=== PATIENT | male | born 1960 | race Caucasian/White ===

== ENCOUNTER → 2016-04-12 | Outpatient (CLI) | payer OTHER, MEDICARE ==
[~2016-04-12] MED LIST: HALDOL 5MG T5 MG/TAB PO; LITHIUM 30300 MG/CAP PO; REMERON30 MG PO
== END ==
LOC: BHSO 12:56
DX: F31.81 Bipolar II disorder (principal)

== ENCOUNTER → 2016-07-07 | Outpatient (CLI) | payer OTHER | LOC: BHSO 13:58 | DX: F31.12 Bipolar disorder, current episode manic without psychotic features, moderate (principal) ==

== ENCOUNTER → 2016-10-13 | Outpatient (CLI) | payer OTHER | LOC: BHSO 14:22 | DX: F31.9 Bipolar disorder, unspecified (principal) ==

== ENCOUNTER → 2017-01-11 | Outpatient (CLI) | payer OTHER | LOC: BHSO 14:26 | DX: F31.73 Bipolar disorder, in partial remission, most recent episode manic (principal) ==

== ENCOUNTER → 2017-04-11 | Outpatient (CLI) | payer OTHER | LOC: BHSO 14:07 | DX: F31.73 Bipolar disorder, in partial remission, most recent episode manic (principal) | CPT/HCPCS: G0463 ==

== ENCOUNTER 2017-05-24 10:12 | Outpatient (RCR) | payer OTHER | END 2017-08-22 | disposition home or self-care (01) | LOC: WSPT | DX: H81.13 Benign paroxysmal vertigo, bilateral (principal) ==

== ENCOUNTER → 2017-07-11 | Outpatient (CLI) | payer OTHER | LOC: BHSO 14:43 | DX: F31.81 Bipolar II disorder (principal) | CPT/HCPCS: G0463 ==

== ENCOUNTER → 2017-08-23 | Outpatient (CLI) | payer OTHER | LOC: BHSO 14:26 | DX: F31.31 Bipolar disorder, current episode depressed, mild (principal) | CPT/HCPCS: G0463 ==

== ENCOUNTER → 2018-01-22 | Outpatient (CLI) | payer OTHER | LOC: BHSO 14:13 | DX: F31.72 Bipolar disorder, in full remission, most recent episode hypomanic (principal) | CPT/HCPCS: G0463 ==

== ENCOUNTER 2018-02-16 16:58 | Emergency (ER) | payer MEDICARE ==
[~2018-02-16] VITALS: Ht 185.4 cm; Wt 118.2 kg
[2018-02-16 17:01] VITALS: BP 201/104; TEMP 98.1
[2018-02-16 17:25] LABS: BASO # 0.1 (0.0-0.2); BASO % 1.1 % (0.0-2.0); EOS # 0.3 (0.0-0.7); EOS % 4.3 % (0-4.0); GRAN % 47.6 % (42.2-75.2); HEMATOCRIT 41.3 % (42.0-52.0); HEMOGLOBIN 13.8 g/dl (13.5-18.0); LYMPH # 2.2 (1.2-3.4); LYMPH % 35.4 % (20.0-51.0); MEAN CELL VOLUME 96 fl (80.0-100.0); MEAN CORPUSCULAR HEMOGLOBIN 32 pg (27.0-31.0); MEAN CORPUSCULAR HGB CONC 33 g/dl (33.0-37.0); MEAN PLATELET VOLUME 10.7 fl (7.4-10.4); MONO # 0.7 (0.1-0.6); MONO % 11.3 % (1.7-9.3); PLATELET COUNT 200 K/mm3 (130-400); REDCELL DISTRIBUTION WIDTH-CV 12.7 % (11.5-14.5)
[2018-02-16] MEDS ORDERED: LIPITOR20 MG PO (17:28)
[2018-02-16] MEDS ORDERED: SYNTHROID0.05 MG/TA PO (17:28)
[2018-02-16] MEDS ORDERED: SYNTHROID0.2 MG/TAB PO (17:28)
[2018-02-16] MEDS ORDERED: PRINZIDE 12.5 M1 TA1 PO (17:29)
[2018-02-16] MEDS ORDERED: PRILOSEC 20MG20 MG PO (17:29)
[2018-02-16] MEDS ORDERED: SEROQUEL 200MG200 MG PO (17:30)
[2018-02-16] MEDS ORDERED: DEPAKOTE ER 50500 MG PO (17:31)
[2018-02-16 17:43] LABS: ALANINE AMINOTRANSFERASE 28 U/L (21-72); ALBUMIN 3.8 gm/dL (3.5-5.0); ALKALINE PHOSPHATASE 71 U/L (50-136); ANION GAP 7 mmol/L (7-16); AST,SGOT 42 U/L (15-37); BILIRUBIN,TOTAL 0.4 mg/dL (0.0-1.0); BLOOD UREA NITROGEN 14 mg/dL (9-20); CARBON DIOXIDE 26 mmol/L (22-30); CHLORIDE 110 mmol/L (98-107); GLUCOSE 93 mg/dL (74-106); POTASSIUM 3.8 mmol/L (3.4-5.0); SODIUM 143 mmol/L (137-145); TOTAL PROTEIN 6.7 gm/dL (6.4-8.2)
[2018-02-16 17:57] LABS: TROPONIN-I < 0.012 ng/mL (0.000-0.034)
[2018-02-16] MEDS ORDERED: K-DUR 10 MEQ T10 MEQ PO (18:07)
[2018-02-16] MEDS ORDERED: LASIX 20MG TABL20 MG PO (18:07)
[2018-02-16 18:45] VITALS: PULSE 70
== END 2018-02-16 18:45 | disposition home or self-care (01) ==
LOC: COL.ER 16:58
PROVIDERS: Emergency Medicine
DX: R06.02 Shortness of breath (principal); R60.9 Edema, unspecified; I10 Essential (primary) hypertension; E78.5 Hyperlipidemia, unspecified

== ENCOUNTER → 2018-03-02 | Outpatient (CLI) | payer MEDICARE ==
[~2018-03-02] MED LIST changes: +DEPAKOTE ER 50500 MG PO; +K-DUR 10 MEQ T10 MEQ PO; +LASIX 20MG TABL20 MG PO; +LIPITOR20 MG PO; +PRILOSEC 20MG20 MG PO; +PRINZIDE 12.5 M1 TA1 PO; +SEROQUEL 200MG200 MG PO; +SYNTHROID0.05 MG/TA PO; +SYNTHROID0.2 MG/TAB PO
== END ==
LOC: COL.VAS 07:43
DX: I50.21 Acute systolic (congestive) heart failure (principal); I08.1 Rheumatic disorders of both mitral and tricuspid valves

== ENCOUNTER → 2018-03-22 | Outpatient (CLI) | payer MEDICARE | LOC: BHSO 13:54 | DX: F31.72 Bipolar disorder, in full remission, most recent episode hypomanic (principal) | CPT/HCPCS: G0463 ==

== ENCOUNTER → 2018-09-13 | Outpatient (CLI) | payer MEDICARE | LOC: BHSO 14:03 | DX: F31.75 Bipolar disorder, in partial remission, most recent episode depressed (principal) | CPT/HCPCS: G0463 ==

== ENCOUNTER → 2018-09-25 | Outpatient (CLI) | payer MEDICARE | LOC: BHSO 13:20 | DX: F31.75 Bipolar disorder, in partial remission, most recent episode depressed (principal) | CPT/HCPCS: G0463 ==

== ENCOUNTER → 2018-10-24 | Outpatient (CLI) | payer MEDICARE | LOC: BHSO 13:22 | DX: F31.74 Bipolar disorder, in full remission, most recent episode manic (principal) | CPT/HCPCS: G0463 ==

== ENCOUNTER → 2018-12-27 | Outpatient (CLI) | payer MEDICARE | LOC: BHSO 13:20 | DX: F31.76 Bipolar disorder, in full remission, most recent episode depressed (principal) | CPT/HCPCS: G0463 ==

== ENCOUNTER 2019-01-07 14:08 | Inpatient (IN) | payer MEDICARE ==
[~2019-01-07] VITALS: Ht 185.4 cm; Wt 119.1 kg
[2019-01-07 15:18] LABS: ARTERIAL BLD GAS O2 SATURATION 77.8 % (92-100); ARTERIAL BLD GAS TCO2 CT 19.8; ARTERIAL BLOOD GAS BASE EXCESS -5.3 (-2-2); ARTERIAL BLOOD GAS HCO3 18.8 meq/L (22-26); ARTERIAL BLOOD GAS PCO2 32.1 mmHg (35-45); ARTERIAL BLOOD GAS pH 7.39 (7.35-7.45)
[2019-01-07 15:19] LABS: ARTERIAL BLOOD GAS PO2 44.8 mmHg (80-100)
[2019-01-07 15:29] LABS: HEMOGLOBIN 11.1 g/dl (13.5-18.0); MEAN CELL VOLUME 99 fl (80.0-100.0); MEAN CORPUSCULAR HEMOGLOBIN 32 pg (27.0-31.0); MEAN CORPUSCULAR HGB CONC 32 g/dl (33.0-37.0); PLATELET COUNT 154 K/mm3 (130-400); RED BLOOD COUNT 3.47 M/mm3 (4.20-5.60); REDCELL DISTRIBUTION WIDTH-CV 13.2 % (11.5-14.5)
[2019-01-07 15:31] LABS: HEMATOCRIT 34.5 % (42.0-52.0)
[2019-01-07 15:53] LABS: ALBUMIN 3.4 gm/dL (3.5-5.0); BILIRUBIN,TOTAL 0.7 mg/dL (0.0-1.0); CALCIUM 8.3 mg/dL (8.4-10.2); CREATININE, serum 3.53 (0.66-1.25); POTASSIUM 4.3 mmol/L (3.4-5.0); TOTAL PROTEIN 6.8 gm/dL (6.4-8.2)
[2019-01-07 15:56] LABS: BAND 2 % (0-10); LYMPHOCYTE 8 % (20.0-51.0); NEUTROPHILS 60 % (42.0-75.2); PLATELET ESTIMATE NORMAL (NORMAL)
[2019-01-07 16:11] LABS: C-REACTIVE PROTEIN 22.3 mg/dL (0.0-0.9); TROPONIN-I 0.066 ng/mL (0.000-0.035)
[2019-01-07 16:21] LABS: THYROID STIMULATING HORMONE 3.08 uIU/mL (0.465-4.680)
[2019-01-07] MEDS ORDERED: TOPROL XL100 MG PO (16:53)
[2019-01-07] MEDS ORDERED: LASIX 40MG TABL40 MG PO ×2 (16:54→16:55)
[2019-01-07] MEDS ORDERED: PRINIVIL20 MG PO (16:55)
[2019-01-07] MEDS ORDERED: LITHIUM 30300 MG/CAP PO (16:58)
[2019-01-07] MEDS ORDERED: SEROQUEL400 MG PO (18:14)
[2019-01-07 18:35] VITALS: BP 117/73; PULSE 99; TEMP 98.3
--- NOTE | 2019-01-07 19:00 | NUR ---
Pt has right swollen foot and hurts upon palpation. Left foot hurts from foot to groin. Pt states he cannot rate or describe pain. Right food edema is 1+ and left foot is 2-3+ edema.
[2019-01-07 19:15] LABS: INR 1.3 (0.8-3.0)
[2019-01-07 19:17] LABS: PARTIAL THROMBOPLASTIN TIME 143.5 SECONDS (26.0-37.0)
--- NOTE | 2019-01-07 19:21 | NUR ---
PT IS A&O X4, BUT DOESN'T UNDERSTAND SIMPLE QUESTIONS REGARDING WHERE HIS PAIN IS AND DESCRIBING PAIN. PT HAS A DOG AT HOME AND STATES THE DOG IS OKAY BC THERE SHOULD BE ENOUGH PEE PADS FOR HIM; THIS IS CONCERNING AND WILL HAVE SOCIAL WORK FOLLOW-UP.
[2019-01-07 20:00] VITALS: BP 120/71; PULSE 101; TEMP 98.4
--- NOTE | 2019-01-07 21:10 | NUR ---
HEPARIN STOPPED FOR TWO HOURS AND WILL RECHECK XA. WILL CONTINUE PER HEPARIN PROTOCOL.
[2019-01-08] VITALS (7 sets, daily range): BP systolic 108–133; BP diastolic 62–94; PULSE 96–108; TEMP 98.3–100.4
[2019-01-08 04:57] LABS: BASO % 0.4 % (0.0-2.0); EOS # 0.3 (0.0-0.7); EOS % 3.6 % (0-4.0); GRAN # 4.7 (1.4-6.5); GRAN % 60.2 % (42.2-75.2); HEMOGLOBIN 10.2 g/dl (13.5-18.0); LYMPH # 1.2 (1.2-3.4); LYMPH % 15.4 % (20.0-51.0); MEAN CELL VOLUME 98 fl (80.0-100.0); MEAN CORPUSCULAR HEMOGLOBIN 32 pg (27.0-31.0); MEAN CORPUSCULAR HGB CONC 32 g/dl (33.0-37.0); MEAN PLATELET VOLUME 9.7 fl (7.4-10.4); MONO # 1.6 (0.1-0.6); PLATELET COUNT 147 K/mm3 (130-400); RED BLOOD COUNT 3.24 M/mm3 (4.20-5.60); REDCELL DISTRIBUTION WIDTH-CV 13.1 % (11.5-14.5)
[2019-01-08 05:02] LABS: HEMATOCRIT 31.8 % (42.0-52.0)
[2019-01-08 05:08] LABS: CALCIUM 8.1 mg/dL (8.4-10.2); CHOLESTEROL RISK RATIO 6.2; CREATININE, serum 2.22 (0.66-1.25); MAGNESIUM 2.8 mg/dL (1.6-2.3); PHOSPHOROUS 4.7 mg/dL (2.5-4.5); POTASSIUM 4.1 mmol/L (3.4-5.0)
[2019-01-08 05:19] LABS: TROPONIN-I 0.039 ng/mL (0.000-0.035)
--- NOTE | 2019-01-08 10:53 | NUR ---
FLASK HANDLER student met with the patient to discuss a discharge plan. The patient lives in [place] with his dog, Noel. The patient reports his brother, Pio Rasheed will pick the dog up this day. The patient denies use of DME and reports independence with ADLs. The patient's PCP is Dr. Calderon and patient receives medications via mail through [facility] with no difficulties. The patient does not have advanced directives in the EMR but patient reports they are completed and designate his brother, Pio.The patient plans to return home upon discharge. PT/OT were ordered for the patient. director of professional services will continue to monitor for recommendations.
--- NOTE | 2019-01-08 14:15 | NUR ---
Dr. Brown at bedside with team rounding.
--- NOTE | 2019-01-08 14:15 | NUR ---
RIP SAW OPERATOR student attended clinical rounds with the team. Ortho consulted. The patient will be moved up to the floor this day. manager field services will continue to monitor.
--- NOTE | 2019-01-08 15:30 | NUR ---
RANDY Titus at pt bedside splinting pts right foot.
--- NOTE | 2019-01-08 19:45 | NUR ---
Report received. 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 A&Ox3. Assessment complete. VS stable. Denies pain/shortness of breath/nausea. Oriented to medical floor room. Right lower extremity wrapped with srinivas/soft splint. Elevated on pillow. Oxi mask @5L/NC. Denies needs. Call light in reach/bed in low wheels locked. Will monitor.
[2019-01-09 04:41] VITALS: BP 136/70; PULSE 106; TEMP 97.7
[2019-01-09 06:22] LABS: MEAN CELL VOLUME 99 fl (80.0-100.0); MEAN CORPUSCULAR HGB CONC 32 g/dl (33.0-37.0); MEAN PLATELET VOLUME 10.3 fl (7.4-10.4); PLATELET COUNT 148 K/mm3 (130-400); RED BLOOD COUNT 2.63 M/mm3 (4.20-5.60); REDCELL DISTRIBUTION WIDTH-CV 12.9 % (11.5-14.5)
[2019-01-09 06:28] LABS: HEMOGLOBIN 8.3 g/dl (13.5-18.0); MEAN CORPUSCULAR HEMOGLOBIN 32 pg (27.0-31.0)
[2019-01-09 06:36] LABS: CALCIUM 7.9 mg/dL (8.4-10.2); CREATININE, serum 1.25 (0.66-1.25); POTASSIUM 4.3 mmol/L (3.4-5.0)
--- NOTE | 2019-01-09 07:00 | NUR ---
Bedside shift report received from KIRSTEN Padilla. Pt in bed resting with eyes closed and CPAP on. Will continue to monitor.
[2019-01-09 07:15] LABS: BAND 14 % (0-10); BURR CELLS 1+; EOSINOPHIL 1 % (0-4); LYMPHOCYTE 23 % (20.0-51.0); METAMYELOCYTE 1 % (0-0); NEUTROPHILS 56 % (42.0-75.2); OVALOCYTES 1+
[2019-01-09 07:16] LABS: PLATELET ESTIMATE NORMAL (NORMAL)
[2019-01-09 07:20] VITALS: BP 137/73; PULSE 103; TEMP 97.7
--- NOTE | 2019-01-09 09:30 | NUR ---
Assessment charted. Pt lethargic and falls asleep easily when resting in bed and talking to him. He states he feels short of breath, o2 at 5L OM. LLE is very swollen, skin feels tight, and pt c/o pain at 10/10 to extremity. RLE is wrapped in a boot but pt does not c/o pain to the site. Heparin gtt running, decreased rate by 1.5 ml/hr per protocol now at 18.5 ml/hour verified with Que in pharmacy. Hospitalist rounding completed, pt agreeable to plan but falls asleep easily. Will continue to [facility].
[2019-01-09 10:45] VITALS: BP 132/79; PULSE 102; TEMP 98.4
--- NOTE | 2019-01-09 11:08 | NUR ---
Called [facility] and talked to [facility] staff regarding recommendations for RLE.
--- NOTE | 2019-01-09 15:27 | NUR ---
AYESHA met with the patient to discuss post acute rehab. SW presented the Medicare.gov list of inpatient rehab and usp facilities in the area. The patient[facility] first choice is [facility], second choice is [facility] and third choice is [facility]. AYESHA left message for [facility] Director and faxed referrals to [facility] and [facility]. AYESHA will continue to follow.
[2019-01-09 15:47] VITALS: BP 143/84; PULSE 96; TEMP 98.7
--- NOTE | 2019-01-09 18:11 | NUR ---
Pt resting in bed, has been sleeping off and on all day. States he has been lethargic for some time now, states he thinks its from lately he has been sleeping in a friends recliner as a favor. Able to wake up with me this evening and hold a conversation. Otherwise has at times been found with 02 off of face and needs reminder to keep on at all times. Resting in bed with both legs elevated on pillows. Denies needs, will continue to monitor.
[2019-01-09 20:11] VITALS: BP 150/78; PULSE 99; TEMP 97
--- NOTE | 2019-01-09 20:55 | NUR ---
Patient assessed at this time. Drowsy but awakens easily. Falls asleep easily. Alert and oriented x 4. Denies having pain and discomfort at this time. Peripheral IVs to right and left AC. Sites are without redness, warmth, swelling, and pain. Heparin gtt continues per orders. On oxygen at 4 L/min via NC. Denies having SOB and dyspnea. Patient with occasional expiratory wheezes. Respirations even and unlabored. HRR. Capillary refill less than 3 seconds. Non-tenting skin turgor. BSAx4. Abdomen soft and non-tender. 2+ edema to RLE. Hard splint to RLE CDI. Denies numbness to toes. Cap refill < 3 seconds to toes. Able to wiggle toes. 3+ edema LLE. Very tight, and warm to touch. Voices no questions, needs, or concerns at this time. Resting in bed with call light within reach.
--- NOTE | 2019-01-09 22:00 | NUR ---
Hep Xa 0.48. No change at this time. Recheck in the morning.
[2019-01-09 23:30] VITALS: BP 125/75; PULSE 103
[2019-01-10] VITALS (12 sets, daily range): BP systolic 123–182; BP diastolic 68–82; PULSE 60–105; TEMP 97–99.5
--- NOTE | 2019-01-10 06:04 | NUR ---
Patient has denied having pain and discomfort. Denies having SOB and dyspnea. Has been wearing CPAP. LLE continues to be tight. Continues on heparin gtt and fluids per orders to periphreal IV to left AC. Voices no questions, needs, or concerns at this time. Resting in bed with call light within reach.
[2019-01-10 06:45] LABS: MEAN CELL VOLUME 98 fl (80.0-100.0); MEAN CORPUSCULAR HGB CONC 33 g/dl (33.0-37.0); MEAN PLATELET VOLUME 9.9 fl (7.4-10.4); PLATELET COUNT 205 K/mm3 (130-400); RED BLOOD COUNT 2.16 M/mm3 (4.20-5.60); REDCELL DISTRIBUTION WIDTH-CV 13.1 % (11.5-14.5)
[2019-01-10 06:51] LABS: CREATININE, serum 0.98 (0.66-1.25); POTASSIUM 4.2 mmol/L (3.4-5.0)
[2019-01-10 07:01] LABS: HEMATOCRIT 21.1 % (42.0-52.0); HEMOGLOBIN 6.9 g/dl (13.5-18.0); MEAN CORPUSCULAR HEMOGLOBIN 32 pg (27.0-31.0)
[2019-01-10 07:44] LABS: BAND 16 % (0-10); EOSINOPHIL 4 % (0-4); LYMPHOCYTE 15 % (20.0-51.0); METAMYELOCYTE 2 % (0-0); MYELOCYTE 1 % (0-0); NEUTROPHILS 58 % (42.0-75.2); PLATELET ESTIMATE NORMAL (NORMAL)
--- NOTE | 2019-01-10 09:40 | NUR ---
Noel, from [facility], reports that they are able to accept the patient and that they have received authorization from the patient's insurance. SW to inform the patient.
--- NOTE | 2019-01-10 15:31 | NUR ---
AYESHA contacted and faxed updates to [facility]. SW to continue to follow.
--- NOTE | 2019-01-10 17:59 | NUR ---
Mr. Rasheed's brother Herson and LAURA Calvert presented to patient advocates office to discuss concerns they have regarding Mr. Varghese discharge planning. They are unaware of the discharge plans and share that Kyle is a very private man as are all the [place] men. They want to share that Klye lives in a split-level home with many stairs going up/down between the levels, additionally Kyle lives alone, and the closest relative is 2 hours away. They wanted to validate that we will have a safe discharge plan in place and they feel that him is unable to be safe at home independently at this time. I assured them our nursing staff and pillowcase folder/social workers work very diligently with every patient to ensure safe discharge plans are in place prior to discharge. I did reassure them I would pass their concerns on to the UD of case management, asking that she have the appropriate social security specialist review plans and dialogue with Kyle in the morning 11.08.19; they were pleased with this plan. The brother Herson did ask, with Kyle's permission, could the social security specialist please call him with the discharge plan and Herson is happy to come from [place] to facilitate transportation if necessary etc. Please contact Herson at [phone]; he states it is ok to leave a message or call his 's cell phone [phone]. They do understand that the social security specialist can only call Herson and/or Nehal with Kyle's permission. They understand this and are most appreciative that their concerns were heard and will be passed on. I did place a message on the UD's phone to call in the am for message regarding Rajni Rasheed. Cesilia Winn MSN, BATH MIXER Babbitt Spinner/Patient Advocate
--- NOTE | 2019-01-10 20:00 | NUR ---
Patient assessed at this time. Alert and oriented. Denies having pain and discomfort at this time. Peripheral IVs to left and right AC flushed. Sites are without redness, warmth, swelling, and pain. Reports SOB and dypsnea with exertion. Denies at rest. LS CTA. Respirations even and unlabored. Does have occasional cough. Unable to produce sputum to be observed. On oxygen at 5 L/min via oxymask. HRR. Capillary refill less than 3 seconds. Non-tenting skin turgor. BSAx4. Abdomen soft and non-tender. Patient has 1+ edema to bilateral hands, 2+ edema RLE, and 3+ to LLE. LLE very tight. Hard splint to RLE. Able to feels toes. Denies numbness, pain, and tingling to right foot. Voices no questions, needs, or concerns at this time. Resting in bed watching TV at this time. Call light is within reach.
[2019-01-11 04:02] VITALS: BP 146/88; PULSE 107
--- NOTE | 2019-01-11 06:10 | NUR ---
Patient has been resting in bed with eyes closed. Has denied having pain and discomfort. Has been wearing CPAP. Voices no questions, needs, or concerns at this time. Call light is within reach.
[2019-01-11 07:21] LABS: COLLECTION METHOD CLEAN CATCH
[2019-01-11 07:29] LABS: PH 6 (5-8); SQUAMOUS EPITHELIAL None Seen /hpf; URINE APPEARANCE Clear; URINE BACTERIA None Seen /hpf; URINE BILIRUBIN Negative (NEGATIVE); URINE BLOOD 1+ (NEGATIVE); URINE COLOR Yellow; URINE GLUCOSE Negative (NEGATIVE); URINE KETONE Negative (NEGATIVE); URINE LEUKOCYTE ESTERASE Negative (NEGATIVE); URINE NITRATE Negative (NEGATIVE); URINE PROTEIN(semi-quant) Negative (NEGATIVE); URINE RBC 0-2 /hpf; URINE UROBILINOGEN Negative (NEGATIVE)
[2019-01-11 07:35] VITALS: BP 145/84; PULSE 101; TEMP 98.1
[2019-01-11 07:59] LABS: HEMATOCRIT 22.1 % (42.0-52.0); HEMOGLOBIN 7.3 g/dl (13.5-18.0); MEAN CELL VOLUME 96 fl (80.0-100.0); MEAN CORPUSCULAR HEMOGLOBIN 32 pg (27.0-31.0); MEAN CORPUSCULAR HGB CONC 33 g/dl (33.0-37.0); MEAN PLATELET VOLUME 9.4 fl (7.4-10.4); PLATELET COUNT 294 K/mm3 (130-400); RED BLOOD COUNT 2.31 M/mm3 (4.20-5.60); REDCELL DISTRIBUTION WIDTH-CV 13.9 % (11.5-14.5)
[2019-01-11 08:32] LABS: BAND 12 % (0-10); EOSINOPHIL 2 % (0-4); LYMPHOCYTE 16 % (20.0-51.0); METAMYELOCYTE 1 % (0-0); MYELOCYTE 2 % (0-0); NEUTROPHILS 47 % (42.0-75.2); NUCLEATED RED BLOOD CELL 1 (0-6); PLATELET ESTIMATE NORMAL (NORMAL)
[2019-01-11 08:33] LABS: ANISOCYTOSIS 1+; HYPOCHROMIA 2+
--- NOTE | 2019-01-11 09:00 | NUR ---
Assessment complete. Alert and oriented. Pt denies SOB, nausea, headache. C/O pain to BLE, rate 5/10. Able to move BLE with little movement. RT foot wrapped in EBONY wrap per ortho. PRN Hydrocodone given. Pt refused breakfast tray but requested Ensure drink. On 5L O2 via NC. Informed pt that stool sample is needed and to notify staff when he has a BM. Urinal at bedside. Call light within reach.
[2019-01-11 12:13] VITALS: BP 120/68; PULSE 98; TEMP 99.2
--- NOTE | 2019-01-11 14:41 | NUR ---
Patient's brother, Herson and his , Selam, ([phone] or [phone]) would like a call with notification of discharge date and plan, and understand that patient will need to give staff permission for this to happen.
[2019-01-11 17:25] VITALS: BP 123/50; PULSE 100; TEMP 98.2
--- NOTE | 2019-01-11 18:33 | NUR ---
Pt has been sleeping most of the day but arousable. Pt refused breakfast and lunch but requested to have Ensure. Had fluids throughout the day. Voiced pain to BLE, 5, earlier in shift. PRN Hydrocodone given as requested with relief. Pt unable to get up with PT today. Denies any needs at this time.
[2019-01-11 19:31] VITALS: BP 131/67; PULSE 98; TEMP 98.8
--- NOTE | 2019-01-11 20:17 | NUR ---
Initial shift assessment done- states pain to LLE 04/15- denies pain meds now,, o2 at 5L/nc, sat 93%, lung sounds decreased in the bases- did void 250cc per urinal at this time- requesting some Sprite
[2019-01-11 23:31] VITALS: BP 119/73; PULSE 103; TEMP 97.9
[2019-01-12 03:15] VITALS: BP 137/71; PULSE 101; TEMP 98.6
--- NOTE | 2019-01-12 06:16 | NUR ---
Quiet night- has been sleeping most of the night- does need to void every hour or two- incontinent at times, misses the urinal- incontinent care provided- needs review to use the call light- just calls out for help-
[2019-01-12 06:53] LABS: MEAN CELL VOLUME 99 fl (80.0-100.0); MEAN CORPUSCULAR HGB CONC 32 g/dl (33.0-37.0); MEAN PLATELET VOLUME 9.1 fl (7.4-10.4); PLATELET COUNT 388 K/mm3 (130-400); RED BLOOD COUNT 2.19 M/mm3 (4.20-5.60); REDCELL DISTRIBUTION WIDTH-CV 14.2 % (11.5-14.5)
[2019-01-12 07:07] LABS: HEMATOCRIT 21.7 % (42.0-52.0); MEAN CORPUSCULAR HEMOGLOBIN 32 pg (27.0-31.0)
[2019-01-12 07:08] LABS: CALCIUM 8.4 mg/dL (8.4-10.2); CREATININE, serum 1.08 (0.66-1.25); POTASSIUM 4.8 mmol/L (3.4-5.0)
[2019-01-12 07:57] VITALS: BP 128/75; PULSE 98; TEMP 97.9
[2019-01-12 09:08] LABS: BAND 45 % (0-10); EOSINOPHIL 4 % (0-4); LYMPHOCYTE 14 % (20.0-51.0); METAMYELOCYTE 2 % (0-0); MYELOCYTE 3 % (0-0); NEUTROPHILS 19 % (42.0-75.2)
[2019-01-12 09:09] LABS: ANISOCYTOSIS 1+; HYPOCHROMIA 2+; PLATELET ESTIMATE NORMAL (NORMAL); POLYCHROMASIA 1+
[2019-01-12 13:47] VITALS: BP 118/64; PULSE 92; TEMP 98.4
[2019-01-12 19:36] VITALS: BP 134/74; PULSE 89; TEMP 97.6
--- NOTE | 2019-01-12 20:30 | NUR ---
Initial shift assessment done- more awake/alert this evening, no requests, states pain is" much better" and not needing anything for pain. O2 at 5L/nc, denies SOB, left leg up on pillow- edematous,, right leg with splint and srinivas wrap in place.
[2019-01-12 23:35] VITALS: BP 138/65; PULSE 100
[2019-01-13] VITALS (12 sets, daily range): BP systolic 124–143; BP diastolic 7–73; PULSE 81–96; TEMP 97.2–98.5
--- NOTE | 2019-01-13 05:55 | NUR ---
Slept soundly all night- has been incontinent of urine- tried to collect a urine specimen this morning w/urinal but not successful--VSS
[2019-01-13 07:15] LABS: MEAN CELL VOLUME 101 fl (80.0-100.0); MEAN CORPUSCULAR HGB CONC 32 g/dl (33.0-37.0); MEAN PLATELET VOLUME 8.9 fl (7.4-10.4); PLATELET COUNT 442 K/mm3 (130-400); RED BLOOD COUNT 2.14 M/mm3 (4.20-5.60); REDCELL DISTRIBUTION WIDTH-CV 14.3 % (11.5-14.5)
[2019-01-13 07:21] LABS: HEMATOCRIT 21.5 % (42.0-52.0); HEMOGLOBIN 6.8 g/dl (13.5-18.0); MEAN CORPUSCULAR HEMOGLOBIN 32 pg (27.0-31.0)
[2019-01-13 07:29] LABS: CALCIUM 8.3 mg/dL (8.4-10.2); CREATININE, serum 1.01 (0.66-1.25); POTASSIUM 4.8 mmol/L (3.4-5.0)
[2019-01-13 08:17] LABS: BAND 24 % (0-10); EOSINOPHIL 2 % (0-4); LYMPHOCYTE 16 % (20.0-51.0); METAMYELOCYTE 6 % (0-0); MYELOCYTE 5 % (0-0); NEUTROPHILS 39 % (42.0-75.2); NUCLEATED RED BLOOD CELL 2 (0-6)
[2019-01-13 08:18] LABS: HYPOCHROMIA 2+; PLATELET ESTIMATE INCREASED (NORMAL)
[2019-01-13 14:39] LABS: COLLECTION METHOD CLEAN CATCH
[2019-01-13 14:44] LABS: MUCOUS Present /lpf; PH 6 (5-8); SQUAMOUS EPITHELIAL None Seen /hpf; URINE APPEARANCE Clear; URINE BACTERIA None Seen /hpf; URINE BILIRUBIN Negative (NEGATIVE); URINE BLOOD Negative (NEGATIVE); URINE COLOR Amber; URINE GLUCOSE Negative (NEGATIVE); URINE KETONE Negative (NEGATIVE); URINE LEUKOCYTE ESTERASE Negative (NEGATIVE); URINE NITRATE Negative (NEGATIVE); URINE PROTEIN(semi-quant) Negative (NEGATIVE); URINE RBC 0-2 /hpf; URINE UROBILINOGEN >=4.0 mg/dL (NEGATIVE); URINE WBC 0-2 /hpf
--- NOTE | 2019-01-13 18:24 | NUR ---
Patient has been more alert this afternoon, has been using urinal independently. Was able to obtain a stool sample and UA. Has utilized call light to vocalize needs, fluid intake has been good. Voices he has some pain to his BLEs, did request a dose of tylenol earlier in the afternoon.
--- NOTE | 2019-01-13 19:35 | NUR ---
Shift assessment complete. Pt resting in bed, sleepy but easy to wake, alert, oriented to person/place c frequent confused statements. Pt denies pain or other c/o at this time. INT x2 patent. Pt denies needs. Call light in reach, bed alarm on. Will continue to monitor.
--- NOTE | 2019-01-13 20:30 | NUR ---
Shift assessment complete. Pt resting in bed, awake, a&o, cooperative c cares. Pt continued c/o to L ankle, R knee et R hand; will given PRN pain med when available per pt req. Pt denies other c/o. PICC noted to R upper arm, patent through purple port c good blood return, red port obstructed et AIVS aware. O2 per NC. Pt denies further needs. Call light in reach, bed alarm on. Will continue to monitor.
[2019-01-14 03:42] VITALS: BP 141/78; PULSE 80
[2019-01-14 07:12] LABS: MEAN CELL VOLUME 98 fl (80.0-100.0); MEAN CORPUSCULAR HGB CONC 32 g/dl (33.0-37.0); PLATELET COUNT 458 K/mm3 (130-400); RED BLOOD COUNT 2.36 M/mm3 (4.20-5.60); REDCELL DISTRIBUTION WIDTH-CV 15.4 % (11.5-14.5)
[2019-01-14 07:15] LABS: HEMATOCRIT 23.2 % (42.0-52.0); HEMOGLOBIN 7.5 g/dl (13.5-18.0); MEAN CORPUSCULAR HEMOGLOBIN 32 pg (27.0-31.0)
[2019-01-14 07:19] LABS: CALCIUM 8.1 mg/dL (8.4-10.2); CREATININE, serum 0.87 (0.66-1.25); POTASSIUM 4.3 mmol/L (3.4-5.0)
[2019-01-14 08:08] VITALS: BP 130/80; PULSE 92; TEMP 97.9
[2019-01-14 08:08] LABS: BAND 9 % (0-10); EOSINOPHIL 4 % (0-4); LYMPHOCYTE 18 % (20.0-51.0); METAMYELOCYTE 6 % (0-0); NEUTROPHILS 52 % (42.0-75.2); NUCLEATED RED BLOOD CELL 1 (0-6)
[2019-01-14 08:09] LABS: PLATELET ESTIMATE INCREASED (NORMAL)
[2019-01-14 08:40] LABS: PATHOLOGY DIFF REVIEW OK +
[2019-01-14 11:33] LABS: PARTIAL THROMBOPLASTIN TIME 28.9 SECONDS (26.0-37.0)
[2019-01-14 12:06] VITALS: BP 131/68; PULSE 86; TEMP 97.8
[2019-01-14 13:04] LABS: INR 1.7 (0.8-3.0); PROTHROMBIN TIME 20.1 SECONDS (9.7-12.8)
--- NOTE | 2019-01-14 15:37 | NUR ---
Planning for IVC Filter implant on 01/[address] Kate, Heprain drip to be held on 01/15 at 0600. Coag labs ordered for 0700. Pt to be NPO at midnight. Heparin drip hold order entered by this RN. Call placed to KIRSTEN Anderson on Medical at this time to relay this information.
[2019-01-14 16:15] VITALS: BP 144/71; PULSE 95; TEMP 97.8
--- NOTE | 2019-01-14 17:04 | NUR ---
Machine Repairer attended clinical rounds with the team. Hospitalist ordering consultations for psych, pulmonolgy, and ortho. SW to continue to follow.
--- NOTE | 2019-01-14 19:29 | NUR ---
Patient is resting in bed with eyes closed, linens changed and rosanna care provided. Call light and personal items are within reach.
[2019-01-14 20:00] VITALS: BP 139/72; PULSE 95
--- NOTE | 2019-01-14 20:10 | NUR ---
Shift assessment complete. Pt resting in bed, awake, a&o c frequent underlying confused statements. Pt reports generalized "aches", denies any other c/o. INT patent. O2 per NC. Soft cast in place to RLE. Pt s further needs. Call light in reach, bed alarm on. Will continue to monitor.
[2019-01-14 23:16] VITALS: BP 160/74; PULSE 92; TEMP 98.5
[2019-01-15] VITALS (7 sets, daily range): BP systolic 121–142; BP diastolic 72–77; PULSE 85–94; TEMP 97.6–98.3
[2019-01-15 03:38] LABS: MEAN CELL VOLUME 99 fl (80.0-100.0); MEAN CORPUSCULAR HGB CONC 32 g/dl (33.0-37.0); MEAN PLATELET VOLUME 8.7 fl (7.4-10.4); PLATELET COUNT 466 K/mm3 (130-400); RED BLOOD COUNT 2.61 M/mm3 (4.20-5.60); REDCELL DISTRIBUTION WIDTH-CV 15.2 % (11.5-14.5)
[2019-01-15 03:39] LABS: HEMATOCRIT 25.8 % (42.0-52.0); HEMOGLOBIN 8.2 g/dl (13.5-18.0); MEAN CORPUSCULAR HEMOGLOBIN 31 pg (27.0-31.0)
[2019-01-15 03:44] LABS: INR 1.4 (0.8-3.0); PROTHROMBIN TIME 16.4 SECONDS (9.7-12.8)
[2019-01-15 03:48] LABS: CALCIUM 8.3 mg/dL (8.4-10.2); CREATININE, serum 0.86 (0.66-1.25); POTASSIUM 4.4 mmol/L (3.4-5.0)
[2019-01-15 03:52] LABS: VALPROIC ACID (DEPAKENE) 41.2 ug/mL (50.0-100.0)
[2019-01-15 04:11] LABS: ANISOCYTOSIS 1+; BAND 24 % (0-10); EOSINOPHIL 5 % (0-4); HYPOCHROMIA 1+; LYMPHOCYTE 10 % (20.0-51.0); METAMYELOCYTE 10 % (0-0); MYELOCYTE 4 % (0-0); NEUTROPHILS 36 % (42.0-75.2); PLATELET ESTIMATE INCREASED (NORMAL)
[2019-01-15 08:26] LABS: INR 1.4 (0.8-3.0); PROTHROMBIN TIME 16.5 SECONDS (9.7-12.8)
--- NOTE | 2019-01-15 08:53 | NUR ---
SEE MERGE REPORT FOR MEDICATION ADMINISTRATION TIMES WELL INTRA/POST SEDATION ASSESSMENTS.
--- NOTE | 2019-01-15 08:58 | NUR ---
Pt apparently left for refuse laborer since bed and patient not in room, no notification of departure.
--- NOTE | 2019-01-15 10:03 | NUR ---
die try out worker stamping gave clinical updates to [facility].
--- NOTE | 2019-01-15 10:23 | NUR ---
Pt returned from record label intern. Right groin site is free of complications. Pt denies pain. Requesting to eat. Saline lock to right AC is free of complications. Denies any other needs. Student nurse at bedside.
--- NOTE | 2019-01-15 16:17 | NUR ---
Polymer Specialist met with patient to review discharge plan. Patient in agreeance to discharge to [facility]. SW contacted patient's brother, Richie (ph#[phone]) with patient's permission. SW provided update to Richie on discharge plan. SW to continue to follow.
--- NOTE | 2019-01-15 17:43 | NUR ---
Pt has had an uneventful shift. He continues to deny needs.
--- NOTE | 2019-01-15 20:15 | NUR ---
Shift assessment complete. Pt resting in bed, awake, a&o c occasional confused conversation, cooperative c cares. Pt reports pain to RLE, PRN Tylenol admin per pt req. Pt denies other c/o. INT patent. Heparin GTT infusing per orders. O2 per NC. Pt denies further needs. Call light in reach, bed alarm on. Will continue to monitor.
[2019-01-16] VITALS (9 sets, daily range): BP systolic 128–159; BP diastolic 68–88; PULSE 76–86; TEMP 97.9–98.6
--- NOTE | 2019-01-16 07:05 | NUR ---
appears to be sleeping, awakened and bedside shift report received from KIRSTEN Hammond
[2019-01-16 07:17] LABS: MEAN CELL VOLUME 98 fl (80.0-100.0); MEAN CORPUSCULAR HGB CONC 32 g/dl (33.0-37.0); MEAN PLATELET VOLUME 9.1 fl (7.4-10.4); PLATELET COUNT 537 K/mm3 (130-400); RED BLOOD COUNT 2.55 M/mm3 (4.20-5.60); REDCELL DISTRIBUTION WIDTH-CV 14.9 % (11.5-14.5)
[2019-01-16 07:27] LABS: MEAN CORPUSCULAR HEMOGLOBIN 31 pg (27.0-31.0)
[2019-01-16 07:31] LABS: CALCIUM 8.4 mg/dL (8.4-10.2); CREATININE, serum 0.88 (0.66-1.25); POTASSIUM 4.8 mmol/L (3.4-5.0)
[2019-01-16 07:36] LABS: INR 1.4 (0.8-3.0); PROTHROMBIN TIME 16.4 SECONDS (9.7-12.8)
--- NOTE | 2019-01-16 07:38 | NUR ---
RANDY Guzman notified of crital WBC
--- NOTE | 2019-01-16 09:10 | NUR ---
heparin shut off at this time, KIRSTEN Lujan in surgery with Dr Larkin notified that heparin is just shut off at 0900 and will inform Bob Wellington CRNA also notified, to surgery per bed
--- NOTE | 2019-01-16 09:45 | NUR ---
assessment completed at 0800 before leaving for surgery, also reviewed assessment completed by student an in agreement with that assessment, no pedal pulses documented by student but pulses were palpable and +2
[2019-01-16 09:48] LABS: BAND 29 % (0-10); EOSINOPHIL 1 % (0-4); LYMPHOCYTE 16 % (20.0-51.0); METAMYELOCYTE 7 % (0-0); MYELOCYTE 8 % (0-0); NEUTROPHILS 31 % (42.0-75.2); PLATELET ESTIMATE INCREASED (NORMAL)
[2019-01-16 09:49] LABS: ANISOCYTOSIS 1+; HYPOCHROMIA 2+
--- NOTE | 2019-01-16 10:25 | NUR ---
AYESHA faxed updates to Luisa at [facility]. career services manager will continue to follow.
--- NOTE | 2019-01-16 12:18 | NUR ---
REMAINS IN SURGERY
--- NOTE | 2019-01-16 12:30 | NUR ---
returned to room from PACU per bed, awake and alert, IV infusing per gravity to right antecubital, splint/cast to right leg CD&I, toes to right leg warm and pink and dorsalis pedal pulses palpable, he is pleasant and coopertive, denies needs at this time
--- NOTE | 2019-01-16 12:45 | NUR ---
requesting water and this was provided, he takes water and tolerates well,
--- NOTE | 2019-01-16 13:15 | NUR ---
rests between checks, heparin bolus given and heparin drip restarted,
--- NOTE | 2019-01-16 13:49 | NUR ---
appears to be dozing, cardiopulmonary in and giving breathing treatment at this time
--- NOTE | 2019-01-16 14:15 | NUR ---
bedside shift report wagner Jones RN, O2 sat 96% on 5L/oxymask, O2 down to 4L
--- NOTE | 2019-01-16 17:37 | NUR ---
Vancomycin Initial Dosing Pharmacy Note Ordering provider: Erasto Lopez MD Indication/duration: Empiric coverage for unknown source LABS: eCrCl is 120 mL/min, WBC increased to 24.5 today Recommendation: Loading dose: 1.75 grams on 01/16/19 @ 18:00 Maintenance dose: 1 gram Q8H Trough goal: 15-20 ug/mL First trough level: 01/18/19 @ 0930 Will continue to follow.
--- NOTE | 2019-01-16 18:11 | NUR ---
Patient resting in bed. Right foot/leg elevated on pillow. Right foot/leg in soft cast. CMS WNL. Patient is A&O. Denies pain. VSS 3L NC O2. IV CDI, fluids infusing. No further needs expressed from patient. Call light within reach
--- NOTE | 2019-01-16 22:21 | NUR ---
Patient resting in bed. Alert and oriented with VSS. Is on hep drip running at 21/hr. Patient denies needs at this time. Call light within reach, will continue to monitor
[2019-01-17] VITALS (7 sets, daily range): BP systolic 125–143; BP diastolic 65–85; PULSE 71–78; TEMP 97.7–98.4
[2019-01-17 04:58] LABS: CALCIUM 8.1 mg/dL (8.4-10.2); CREATININE, serum 0.95 (0.66-1.25); POTASSIUM 4.7 mmol/L (3.4-5.0)
--- NOTE | 2019-01-17 05:22 | NUR ---
HEP XA 0.68. PER PROTOCL, NO CHANGE. STILL AT 21/HR
[2019-01-17 08:33] LABS: MEAN CORPUSCULAR HGB CONC 31 g/dl (33.0-37.0); MEAN PLATELET VOLUME 9.5 fl (7.4-10.4); PLATELET COUNT 576 K/mm3 (130-400); RED BLOOD COUNT 2.38 M/mm3 (4.20-5.60); REDCELL DISTRIBUTION WIDTH-CV 15.3 % (11.5-14.5)
[2019-01-17 08:40] LABS: HEMATOCRIT 24.6 % (42.0-52.0); HEMOGLOBIN 7.5 g/dl (13.5-18.0); MEAN CELL VOLUME 103 fl (80.0-100.0); MEAN CORPUSCULAR HEMOGLOBIN 32 pg (27.0-31.0)
[2019-01-17 08:59] LABS: BAND 22 % (0-10); BASOPHIL 1 % (0-2); LYMPHOCYTE 14 % (20.0-51.0); METAMYELOCYTE 1 % (0-0); MYELOCYTE 7 % (0-0); NEUTROPHILS 43 % (42.0-75.2); PLATELET ESTIMATE INCREASED (NORMAL)
[2019-01-17 10:41] LABS: RETIC # 0.13 M/mm3 (0.02-0.16); RETIC % 4.9 % (0.5-3.52)
[2019-01-17 10:44] LABS: C-REACTIVE PROTEIN 4.5 mg/dL (0.0-0.9)
--- NOTE | 2019-01-17 10:58 | NUR ---
Pt awake and alert this morning, no C/O pain at this time, shift assessments complete, left Pt call light in reach, bed in lowest position.
[2019-01-17 11:37] LABS: IRON,SERUM 83 ug/dL (35-150); TOTAL IRON BINDING CAPACITY 305 ug/dL (261-462)
--- NOTE | 2019-01-17 15:09 | NUR ---
Test Driver spoke with Luisa at [facility] and faxed updates. SW to continue to follow.
--- NOTE | 2019-01-17 20:00 | NUR ---
Assessment complete. Pt awake in bed watching TV. C/O pain to LLE rate 5/10. Pt refused pain meds at this time. RLE wrapped in EBONY wrap, denies pain to RLE. Denies SOB, on 3L O2 via NC. On tele, lead checked and in place. IV to RAC patent, IV fluids infusing, dressing CDI. Needs met at this time. Call light within reach.
--- NOTE | 2019-01-17 20:07 | NUR ---
Pt rested in the room today, he has attempted to use the bedpan several times, no C/O pain today, IV site in right arm removed, site tegaderm was loose and area was bleeding prior to removal. IV canula intact, VS have been stable.
[2019-01-18 01:49] LABS: FOLATE (FOLIC ACID) 9.7 ng/mL (7.0-31.4)
[2019-01-18 03:26] VITALS: BP 127/78; PULSE 72
--- NOTE | 2019-01-18 05:44 | NUR ---
Pt slept most of the night. PRN Clanton given for left leg pain with relief. Needs met. Call light within reach.
--- NOTE | 2019-01-18 07:00 | NUR ---
Patient is up in recliner talking on phone, personal items and call light is within reach.
--- NOTE | 2019-01-18 07:04 | NUR ---
this student nurse received report from steward/stewardess night and will be assisting primary nurse KIRSTEN Anderson from @[phone].
--- NOTE | 2019-01-18 07:42 | NUR ---
Report given to KIRSTEN Anderson.
[2019-01-18 08:05] VITALS: BP 118/62; PULSE 74; TEMP 97.6
[2019-01-18 08:12] LABS: PATHOLOGY DIFF REVIEW OK +
[2019-01-18 10:15] LABS: MEAN CELL VOLUME 99 fl (80.0-100.0); MEAN CORPUSCULAR HGB CONC 32 g/dl (33.0-37.0); MEAN PLATELET VOLUME 8.7 fl (7.4-10.4); RED BLOOD COUNT 2.92 M/mm3 (4.20-5.60); REDCELL DISTRIBUTION WIDTH-CV 15.8 % (11.5-14.5)
[2019-01-18 10:17] LABS: HEMATOCRIT 28.8 % (42.0-52.0); HEMOGLOBIN 9.2 g/dl (13.5-18.0); MEAN CORPUSCULAR HEMOGLOBIN 32 pg (27.0-31.0); PLATELET COUNT 744 K/mm3 (130-400)
[2019-01-18 10:27] LABS: CALCIUM 8.8 mg/dL (8.4-10.2); CREATININE, serum 0.95 (0.66-1.25); POTASSIUM 4.2 mmol/L (3.4-5.0)
[2019-01-18 10:47] LABS: BAND 18 % (0-10); EOSINOPHIL 1 % (0-4); LYMPHOCYTE 16 % (20.0-51.0); METAMYELOCYTE 4 % (0-0); MYELOCYTE 5 % (0-0); NEUTROPHILS 51 % (42.0-75.2); NUCLEATED RED BLOOD CELL 3 (0-6); PLATELET ESTIMATE INCREASED (NORMAL)
[2019-01-18 12:57] VITALS: BP 126/59; PULSE 73; TEMP 97.9
--- NOTE | 2019-01-18 13:56 | NUR ---
Primary nurse was assisted with [phone] patient care by [employer] student Jj Clements and [facility] instructor Giovana Tipton RN-.
[2019-01-18 15:42] VITALS: BP 132/78; PULSE 74; TEMP 97.7
--- NOTE | 2019-01-18 19:30 | NUR ---
Paient resting in bed watching TV. IV antibiotic infusing. Denies having pain. Call light and personal items are within reach.
[2019-01-18 19:32] VITALS: BP 143/68; PULSE 82; TEMP 97.7
[2019-01-19 00:14] VITALS: BP 146/73; PULSE 91; TEMP 98.2
[2019-01-19 04:02] VITALS: BP 132/61; PULSE 85; TEMP 97.7
[2019-01-19 06:45] LABS: MEAN CELL VOLUME 100 fl (80.0-100.0); MEAN CORPUSCULAR HGB CONC 31 g/dl (33.0-37.0); MEAN PLATELET VOLUME 8.8 fl (7.4-10.4); RED BLOOD COUNT 2.73 M/mm3 (4.20-5.60); REDCELL DISTRIBUTION WIDTH-CV 16.1 % (11.5-14.5)
[2019-01-19 07:00] LABS: HEMATOCRIT 27.4 % (42.0-52.0); HEMOGLOBIN 8.6 g/dl (13.5-18.0); MEAN CORPUSCULAR HEMOGLOBIN 32 pg (27.0-31.0); PLATELET COUNT 565 K/mm3 (130-400)
[2019-01-19 07:08] LABS: CALCIUM 8.6 mg/dL (8.4-10.2); CREATININE, serum 0.95 (0.66-1.25); POTASSIUM 4.2 mmol/L (3.4-5.0)
--- NOTE | 2019-01-19 08:17 | NUR ---
PT HAD UNEVENTFUL SHIFT. HAD ONE COMPLETE BED CHANGE AFTER USING THE URINAL. HAS BEEN INCONTINENT X2 AFTER USING THE URINAL. VOICES NO C/O DURING THIS SHIFT. RLE WITH SOFT CAST ON BELOW THE KNEE. LLE WITH 2+ EDEMA. END OF SHIFT REPORT GIVEN TO ONCOMING RN.
[2019-01-19 09:12] VITALS: BP 141/81; PULSE 79; TEMP 97.9
[2019-01-19 09:50] LABS: ANISOCYTOSIS 1+; BAND 20 % (0-10); EOSINOPHIL 1 % (0-4); LYMPHOCYTE 25 % (20.0-51.0); MYELOCYTE 1 % (0-0); NEUTROPHILS 48 % (42.0-75.2); PLATELET ESTIMATE INCREASED (NORMAL)
--- NOTE | 2019-01-19 12:13 | NUR ---
Faxed updates per request
--- NOTE | 2019-01-19 12:18 | NUR ---
Vancomycin Follow-up Pharmacy Note: Current regimen: 1 GRAM Q8H Vancomycin trough: 12.46 ON 01/18/19 Adjustments: Increasing dose to 1.25 grams Q8H. Trough goal is 15-20. Next trough draw will be 01/21/19 @ 09:30. Pharmacy will continue to follow.
[2019-01-19 13:53] VITALS: BP 133/83; PULSE 84; TEMP 98.4
--- NOTE | 2019-01-19 18:00 | NUR ---
Patient has had several loose/liquid stools today. We are sending a stool to check for C-diff. Patient has been doing well today. He stated he is not incontinent of urine but he keeps spilling his urinal. This time he stated he did not realize he was going to have a bowel movement and had an accident in the bed. He's been using the bedpan. No complaints of pain or cramps. Denies nausea. No other changes at this time. Call light within reach.
[2019-01-19 18:02] VITALS: BP 135/82; PULSE 76; TEMP 98.3
--- NOTE | 2019-01-19 20:00 | NUR ---
Patient assessed at this time. Alert and oriented, and able to make needs known. Denies having pain and discomfort at this time. Peripheral IV to left AC. Site is without redness, warmth, swelling, and pain. On oxygen at 1 l/min via NC. Denies having SOB and dyspnea. Respirations even and unlabored. HRR. Capillary refill less than 3 seconds. Non-tenting skin turgor. BSAx4. Abdomen soft and non-tender. C-diff sample came back negative. Updated patient. LLE with 3+ edema. Soft cast to RLE CDI. Able to wiggle toes. Denies pain and discomfort to BLE. Voices no questions, needs, or concerns at this time. Resting in bed with call light within reach.
[2019-01-19 20:46] VITALS: BP 142/78; PULSE 82; TEMP 98.4
[2019-01-20 00:53] VITALS: BP 144/80; PULSE 84; TEMP 97.8
[2019-01-20 04:15] VITALS: BP 130/76; PULSE 88; TEMP 97.3
--- NOTE | 2019-01-20 06:51 | NUR ---
Patient denied having pain and discomfort throughout the night. Voices no questions, needs, or concerns at this time. Resting in bed with call light within reach.
[2019-01-20 07:15] LABS: MEAN CELL VOLUME 103 fl (80.0-100.0); MEAN CORPUSCULAR HGB CONC 31 g/dl (33.0-37.0); MEAN PLATELET VOLUME 8.7 fl (7.4-10.4); PLATELET COUNT 495 K/mm3 (130-400); RED BLOOD COUNT 2.72 M/mm3 (4.20-5.60); REDCELL DISTRIBUTION WIDTH-CV 17.2 % (11.5-14.5)
[2019-01-20 07:16] LABS: HEMOGLOBIN 8.6 g/dl (13.5-18.0); MEAN CORPUSCULAR HEMOGLOBIN 32 pg (27.0-31.0)
[2019-01-20 07:26] LABS: CALCIUM 8.4 mg/dL (8.4-10.2); CREATININE, serum 1.01 (0.66-1.25); MAGNESIUM 2.1 mg/dL (1.6-2.3); POTASSIUM 4.4 mmol/L (3.4-5.0)
[2019-01-20 08:17] VITALS: BP 136/82; PULSE 88; TEMP 97.9
[2019-01-20 10:27] LABS: ANISOCYTOSIS 2+; BAND 8 % (0-10); EOSINOPHIL 6 % (0-4); LYMPHOCYTE 26 % (20.0-51.0); NEUTROPHILS 53 % (42.0-75.2); NUCLEATED RED BLOOD CELL 2 (0-6); PLATELET ESTIMATE INCREASED (NORMAL)
[2019-01-20 12:22] VITALS: BP 129/72; PULSE 77; TEMP 97.9
[2019-01-20 16:17] VITALS: BP 119/73; PULSE 78; TEMP 97.9
--- NOTE | 2019-01-20 18:00 | NUR ---
Sat at side of bed with physical therapist. Denied pain today. Afebrile. Labs improved. IV antibiotics infusing.
--- NOTE | 2019-01-20 19:50 | NUR ---
Shift assessment complete. Pt resting in bed, awake, a&o, cooperative c cares. Pt reports increased pain to RLE as well as L foot, rated "6/10" at this time; PRN pain mushroom growth media mixer per pt req c HS meds. Pt denies any other c/o. IV patent. O2 per NC. Pt denies further needs at this time. Call light in reach, bed alarm on. Will continue to monitor.
[2019-01-20 21:00] VITALS: BP 120/75; PULSE 77; TEMP 98.4
[2019-01-21 00:55] VITALS: BP 106/63; PULSE 76; TEMP 98.8
[2019-01-21 08:00] VITALS: BP 134/72; PULSE 84; TEMP 98
[2019-01-21] MEDS ORDERED: ELIQUIS 5MG PO (08:26)
[2019-01-21] MEDS ORDERED: LAMICTAL 25MG T25 MG PO (08:28)
[2019-01-21] MEDS ORDERED: TOPROL XL 50MG50 MG PO (08:29)
--- NOTE | 2019-01-21 09:50 | NUR ---
Report received from Stephany CURTIS and care resumed. Pt resting upon assessment. Denies any pain or concerns. Did state he plans to go to [facility] today. Will continue to follow.
[2019-01-21 10:18] LABS: MEAN CELL VOLUME 103 fl (80.0-100.0); MEAN CORPUSCULAR HGB CONC 31 g/dl (33.0-37.0); MEAN PLATELET VOLUME 8.8 fl (7.4-10.4); PLATELET COUNT 438 K/mm3 (130-400); RED BLOOD COUNT 2.97 M/mm3 (4.20-5.60); REDCELL DISTRIBUTION WIDTH-CV 17.8 % (11.5-14.5)
[2019-01-21 10:22] LABS: CALCIUM 8.5 mg/dL (8.4-10.2); CREATININE, serum 1.08 (0.66-1.25); POTASSIUM 4.1 mmol/L (3.4-5.0)
[2019-01-21 10:43] LABS: HEMATOCRIT 30.6 % (42.0-52.0); HEMOGLOBIN 9.4 g/dl (13.5-18.0); MEAN CORPUSCULAR HEMOGLOBIN 32 pg (27.0-31.0)
[2019-01-21] MEDS ORDERED: IPRATROPIUM BROM3 M1 IH (10:46)
--- NOTE | 2019-01-21 10:47 | NUR ---
Report given to Med CURTIS and care transfered.
[2019-01-21] MEDS ORDERED: COLACE 100100 MG/CAP PO (10:48)
[2019-01-21] MEDS ORDERED: LASIX 20MG TABL20 MG PO (10:48)
[2019-01-21] MEDS ORDERED: TYLENOL 325MG325 MG PO (10:49)
[2019-01-21] MEDS ORDERED: NORCO 325 MG-7.1 TAB PO (10:50)
[2019-01-21 10:57] LABS: ANISOCYTOSIS 1+; BAND 7 % (0-10); EOSINOPHIL 1 % (0-4); LYMPHOCYTE 14 % (20.0-51.0); METAMYELOCYTE 2 % (0-0); MYELOCYTE 2 % (0-0); NEUTROPHILS 72 % (42.0-75.2); PLATELET ESTIMATE INCREASED (NORMAL)
[2019-01-21 10:58] LABS: HYPOCHROMIA 2+
[2019-01-21 12:00] VITALS: BP 128/80; PULSE 80; TEMP 98.3
[2019-01-21 14:48] VITALS: BP 128/80; PULSE 80; TEMP 98.3
--- NOTE | 2019-01-21 15:59 | NUR ---
REPORT CALLED TO [facility].
--- NOTE | 2019-01-21 16:16 | NUR ---
Patient to discharge today. AYESHA contacted Noel at [facility] and set up transportation time for 2:30pm. AYESHA provided this update to patient and to patient's RN, Med. AYESHA faxed discharge orders to Noel at [facility]. No additional concerns at this time.
== END 2019-01-21 15:10 | DRG 166 ==
LOC: COL.ER 14:08 → ICU 16:40 → MEDICAL 16:40
PROVIDERS: Emergency Medicine; Family Medicine; Internal Medicine; Nurse Practitioner Family; Physician Assistant; Psychiatry & Neurology Psychiatry; Radiology Diagnostic Radiology; Student in an Organized Health Care Education/Training Program; ADMIT Hospitalist
PROC: 06H03DZ Insertion of Intraluminal Device into Inferior Vena Cava, Percutaneous Approach (ICD-10-PCS; principal; 2019-01-15)
PROC: 0QSN04Z Reposition Right Metatarsal with Internal Fixation Device, Open Approach (ICD-10-PCS; 2019-01-16)
PROC: 0QSN04Z Reposition Right Metatarsal with Internal Fixation Device, Open Approach (ICD-10-PCS; 2019-01-16)
PROC: 0QSN04Z Reposition Right Metatarsal with Internal Fixation Device, Open Approach (ICD-10-PCS; 2019-01-16)
PROC: 0QSN04Z Reposition Right Metatarsal with Internal Fixation Device, Open Approach (ICD-10-PCS; 2019-01-16)
PROC: 0QSN04Z Reposition Right Metatarsal with Internal Fixation Device, Open Approach (ICD-10-PCS; 2019-01-16)
DX: I26.99 Other pulmonary embolism without acute cor pulmonale (principal); J96.01 Acute respiratory failure with hypoxia; I21.A1 Myocardial infarction type 2; N17.9 Acute kidney failure, unspecified; I50.32 Chronic diastolic (congestive) heart failure; E87.2 Acidosis; I13.0 Hypertensive heart and chronic kidney disease with heart failure and stage 1 through stage 4 chronic kidney disease, or unspecified chronic kidney disease; S82.61XA Displaced fracture of lateral malleolus of right fibula, initial encounter for closed fracture; S92.301A Fracture of unspecified metatarsal bone(s), right foot, initial encounter for closed fracture; S92.211A Displaced fracture of cuboid bone of right foot, initial encounter for closed fracture; K21.9 Gastro-esophageal reflux disease without esophagitis; F31.9 Bipolar disorder, unspecified; I34.0 Nonrheumatic mitral (valve) insufficiency; G47.33 Obstructive sleep apnea (adult) (pediatric); E78.5 Hyperlipidemia, unspecified; E03.9 Hypothyroidism, unspecified; E66.01 Morbid (severe) obesity due to excess calories; N18.2 Chronic kidney disease, stage 2 (mild); D63.1 Anemia in chronic kidney disease; D47.3 Essential (hemorrhagic) thrombocythemia; Z99.81 Dependence on supplemental oxygen
CPT/HCPCS: 99223-AI; 99231-AI; 99232-AI; 99233-AI; 99239; A4216; A9284; A9540; A9567; C1713; C1880; G0463; J0690; J0696; J1100; J1644; J2250; J2405; J2543; J2704; J3010; J3370; J7030; J7040; J7050; J7512; P9016; Q9967

== ENCOUNTER → 2019-01-24 | Outpatient (CLI) | payer MEDICARE ==
[~2019-01-24] MED LIST changes: +COLACE 100100 MG/CAP PO; +ELIQUIS 5MG PO; +IPRATROPIUM BROM3 M1 IH; +LAMICTAL 25MG T25 MG PO; +LASIX 40MG TABL40 MG PO; +NORCO 325 MG-7.1 TAB PO; +PRINIVIL20 MG PO; +SEROQUEL400 MG PO; +TOPROL XL 50MG50 MG PO; +TOPROL XL100 MG PO; +TYLENOL 325MG325 MG PO
== END ==
LOC: ZLAB.STJ 13:52 → ZCOL.LAB 13:52
DX: Z01.89 Encounter for other specified special examinations (principal)

== ENCOUNTER → 2019-02-07 | Outpatient (CLI) | payer MEDICARE | LOC: BHSO 13:08 | DX: F31.75 Bipolar disorder, in partial remission, most recent episode depressed (principal) | CPT/HCPCS: G0463 ==

== ENCOUNTER → 2019-02-13 | Outpatient (CLI) | payer MEDICARE | LOC: ZLAB.STJ 10:16 | DX: F31.76 Bipolar disorder, in full remission, most recent episode depressed (principal) ==

== ENCOUNTER → 2019-03-12 | Outpatient (CLI) | payer MEDICARE | LOC: BHSO 14:24 | DX: F31.78 Bipolar disorder, in full remission, most recent episode mixed (principal) | CPT/HCPCS: G0463 ==

== ENCOUNTER → 2019-04-12 | Outpatient (CLI) | payer MEDICARE | LOC: BHSO 13:01 | DX: F31.76 Bipolar disorder, in full remission, most recent episode depressed (principal) | CPT/HCPCS: G0463 ==

== ENCOUNTER 2019-05-12 07:00 | Outpatient (RCR) | payer MEDICARE, MEDICAID ==
[2019-05-10 08:00] VITALS: BP 96/66; PULSE 99; TEMP 98.6
--- NOTE | 2019-05-10 10:50 | NUR ---
Per pt report there is a possibility of him going to SNF for recovery.Gave pt card for him to call us if this occurs.Per pt he will know more later today.
[2019-05-10 17:58] VITALS: BP 98/61; PULSE 85; TEMP 98.7
[2019-05-11 07:21] VITALS: BP 92/54; PULSE 80; TEMP 98.3
--- NOTE | 2019-05-11 08:52 | NUR ---
LEFT MESSAGE WITH [employer] HOUSE OVER AT [facility].
--- NOTE | 2019-05-11 09:30 | NUR ---
SPOKE WITH KIRSTEN CHACKO AT [facility]. KIRSTEN CHACKO WAS AWARE OF THE PT TRANSFERRING OVER CARE TO THEIR FACILITY. FAXED OVER RECENT ORDERS, LAB RESULTS AND MEDICINE ADMINISTRATION HISTORY REPORT FROM OUR UNIT TO [phone] AND GAVE PT A COPY OF THE ORDERS WELL. INFORMED KIRSTEN CHACKO THAT WE NEED A TRANSFER OF CARE ORDER FROM THEM OR DR. LOERA AND ENCOURAGED HER TO FAX THE ORDER OVER TO OUR UNIT. THIS UNIT WILL CONTINUE TO WORK ON OBTAINING AN ORDER IF THEY DO NOT HAVE ONE FROM DR. LOERA.
--- NOTE | 2019-05-11 10:27 | NUR ---
LEFT MESSAGE TO ENCOURAGED DR LOERA'S OFFICE TO FAX ORDER IN REGARDS TO TRANSFER OF CARE FOR THIS PT.
[~2019-05-12] VITALS: Ht 185.4 cm; Wt 98.3 kg
[~2019-05-12 07:00] MED LIST changes: +CEFTRIAXON2 GM/50 ML IV; +DESYREL DIVIDO150 M1 PO; +PRINIVIL40 MG PO; +SINEMET 25/101 UDTAB PO; +VANCO 1.751.75 GM/50 IV
--- NOTE | 2019-05-13 09:24 | NUR ---
Order received from office.Pt now at [facility].
== END 2019-05-13 09:25 | disposition home or self-care (01) ==
LOC: EUO 07:00
DX: D72.89 Other specified disorders of white blood cells (principal); I26.99 Other pulmonary embolism without acute cor pulmonale; M86.172 Other acute osteomyelitis, left ankle and foot
CPT/HCPCS: J0696; J3370; J7040

== ENCOUNTER → 2019-05-13 | Outpatient (CLI) | payer MEDICARE, MEDICAID ==
[2019-05-13 19:50] LABS: BASO # 0.1 (0.0-0.2); BASO % 0.6 % (0.0-2.0); EOS # 0.3 (0.0-0.7); EOS % 3.5 % (0-4.0); GRAN # 6.7 (1.4-6.5); GRAN % 71.5 % (42.2-75.2); HEMOGLOBIN 10.2 g/dl (13.5-18.0); LYMPH # 1.1 (1.2-3.4); LYMPH % 11.8 % (20.0-51.0); MEAN CELL VOLUME 97 fl (80.0-100.0); MEAN CORPUSCULAR HEMOGLOBIN 31 pg (27.0-31.0); MEAN CORPUSCULAR HGB CONC 32 g/dl (33.0-37.0); MEAN PLATELET VOLUME 9.7 fl (7.4-10.4); MONO # 1.1 (0.1-0.6); MONO % 12.2 % (1.7-9.3); PLATELET COUNT 247 K/mm3 (130-400); RED BLOOD COUNT 3.32 M/mm3 (4.20-5.60); REDCELL DISTRIBUTION WIDTH-CV 15.3 % (11.5-14.5)
[2019-05-13 19:54] LABS: HEMATOCRIT 32.3 % (42.0-52.0)
[2019-05-13 20:08] LABS: ALBUMIN 2.7 gm/dL (3.5-5.0); BILIRUBIN,TOTAL 0.2 mg/dL (0.0-1.0); CALCIUM 8.3 mg/dL (8.4-10.2); CREATININE, serum 0.82 (0.66-1.25); MAGNESIUM 2.3 mg/dL (1.6-2.3); POTASSIUM 4.4 mmol/L (3.4-5.0); TOTAL PROTEIN 5.5 gm/dL (6.4-8.2)
== END ==
LOC: ZCOL.LAB 19:31
PROVIDERS: Internal Medicine
DX: M86.9 Osteomyelitis, unspecified (principal); N18.3 Chronic kidney disease, stage 3 (moderate)

== ENCOUNTER → 2019-05-15 | Outpatient (CLI) | payer MEDICARE, MEDICAID | LOC: ZCOL.LAB 20:23 | DX: M86.172 Other acute osteomyelitis, left ankle and foot (principal) ==

== ENCOUNTER → 2019-05-16 | Outpatient (CLI) | payer MEDICARE, MEDICAID | LOC: ZCOL.LAB 17:32 | DX: L89.609 Pressure ulcer of unspecified heel, unspecified stage (principal) ==

== ENCOUNTER → 2019-05-19 | Outpatient (CLI) | payer MEDICARE, MEDICAID | LOC: ZCOL.LAB 20:19 | DX: B95.62 Methicillin resistant Staphylococcus aureus infection as the cause of diseases classified elsewhere (principal) ==

== ENCOUNTER → 2019-05-22 | Outpatient (CLI) | payer MEDICARE, MEDICAID | LOC: ZCOL.LAB 20:57 | DX: M86.172 Other acute osteomyelitis, left ankle and foot (principal) ==

== ENCOUNTER → 2019-05-25 | Outpatient (CLI) | payer MEDICARE, MEDICAID | LOC: ZCOL.LAB 20:14 | DX: B95.62 Methicillin resistant Staphylococcus aureus infection as the cause of diseases classified elsewhere (principal) ==

== ENCOUNTER → 2019-06-20 | Outpatient (CLI) | payer MEDICARE, MEDICAID | LOC: ZCOL.LAB 12:35 | DX: M86.172 Other acute osteomyelitis, left ankle and foot (principal) ==

== ENCOUNTER → 2019-07-08 | Outpatient (CLI) | payer MEDICARE, MEDICAID | LOC: ZCOL.LAB 14:32 | DX: M86.172 Other acute osteomyelitis, left ankle and foot (principal) ==

== ENCOUNTER → 2019-08-02 | Outpatient (CLI) | payer MEDICARE, MEDICAID ==
[~2019-08-02] MED LIST changes: +BACTRIM DS 8001 TAB PO; +DESYREL 100MG100 MG PO; +LAMICTAL 100MG100 MG PO; +LITHIUM CA150 MG/CAP PO; +METAMUCIL3.4 GM/DOS PO; +PRINIVIL5 MG PO
== END ==
LOC: COL.RAD 09:37
DX: I82.402 Acute embolism and thrombosis of unspecified deep veins of left lower extremity (principal); R59.9 Enlarged lymph nodes, unspecified
CPT/HCPCS: Q9967

== ENCOUNTER 2019-08-04 17:09 | Inpatient (IN) | payer MEDICARE, MEDICAID ==
[~2019-08-04] VITALS: Ht 185.4 cm; Wt 94.6 kg
[~2019-08-04 17:09] MED LIST changes: -BACTRIM DS 8001 TAB PO; -DESYREL 100MG100 MG PO; -LAMICTAL 100MG100 MG PO; -LITHIUM CA150 MG/CAP PO; -METAMUCIL3.4 GM/DOS PO; -PRINIVIL5 MG PO
[2019-08-04 18:15] LABS: BASO # 0.1 (0.0-0.2); BASO % 0.5 % (0.0-2.0); EOS # 0.1 (0.0-0.7); EOS % 0.5 % (0-4.0); GRAN # 10.5 (1.4-6.5); GRAN % 80.4 % (42.2-75.2); HEMOGLOBIN 9.8 g/dl (13.5-18.0); LYMPH # 1.1 (1.2-3.4); LYMPH % 8.6 % (20.0-51.0); MEAN CELL VOLUME 95 fl (80.0-100.0); MEAN CORPUSCULAR HEMOGLOBIN 31 pg (27.0-31.0); MEAN CORPUSCULAR HGB CONC 33 g/dl (33.0-37.0); MEAN PLATELET VOLUME 9.5 fl (7.4-10.4); MONO # 1.2 (0.1-0.6); MONO % 9.3 % (1.7-9.3); PLATELET COUNT 273 K/mm3 (130-400); RED BLOOD COUNT 3.16 M/mm3 (4.20-5.60); REDCELL DISTRIBUTION WIDTH-CV 12.2 % (11.5-14.5)
[2019-08-04 18:28] LABS: ALBUMIN 3.8 gm/dL (3.5-5.0); BILIRUBIN,TOTAL 0.5 mg/dL (0.0-1.0); CALCIUM 9.3 mg/dL (8.4-10.2); CREATININE, serum 1.36 (0.66-1.25)
[2019-08-04 21:14] LABS: COLLECTION METHOD CLEAN CATCH
[2019-08-04 21:19] LABS: PH 6 (5-8); SQUAMOUS EPITHELIAL None Seen /hpf; URINE APPEARANCE Clear; URINE BACTERIA None Seen /hpf; URINE BILIRUBIN Negative (NEGATIVE); URINE BLOOD Negative (NEGATIVE); URINE COLOR Yellow; URINE GLUCOSE Negative (NEGATIVE); URINE KETONE Trace (NEGATIVE); URINE LEUKOCYTE ESTERASE Negative (NEGATIVE); URINE NITRATE Negative (NEGATIVE); URINE PROTEIN(semi-quant) Negative (NEGATIVE); URINE RBC None Seen /hpf; URINE UROBILINOGEN Negative (NEGATIVE); URINE WBC 0-2 /hpf
[2019-08-04] MEDS ORDERED: TOPROL XL 50MG50 MG PO (22:17)
[2019-08-04] MEDS ORDERED: PRINIVIL5 MG PO (22:17)
[2019-08-04] MEDS ORDERED: METAMUCIL3.4 GM/DOS PO (22:19)
[2019-08-04] MEDS ORDERED: LITHIUM CA150 MG/CAP PO (22:20)
[2019-08-04] MEDS ORDERED: LAMICTAL 100MG100 MG PO (22:20)
[2019-08-04] MEDS ORDERED: DESYREL 100MG100 MG PO (22:21)
[2019-08-04] MEDS ORDERED: BACTRIM DS 8001 TAB PO (22:21)
--- NOTE | 2019-08-04 22:30 | NUR ---
Received patient via stretcher from ER. Patient is alert and oriented. Noted to have chronic wound on left heel, covered with dressing from ER. With Vancomycin infusing on right forearm and heparin drip on right wrist at 17ml/hr. No hepaXa result. Prior to transfer, ER nurse said she hooked heparin drip without hepaXa result and she will put an order for HepaXa lab draw. Patient uses walker and has a brace that he use whenever he would ambulate. Call light within reach. Urinal provided at the bedside.
--- NOTE | 2019-08-04 23:00 | NUR ---
Zosyn 4.5gm given at ER at 2006H. Another order of same medicine and dosage was due adelso but verified with Irina CURTIS and she said that patient already got a dose of Zosyn and the next one will be at 0600H. She said not to give the second order of Zosyn.
[2019-08-05] VITALS (8 sets, daily range): BP systolic 91–118; BP diastolic 51–59; PULSE 69–92; TEMP 98–99.7
--- NOTE | 2019-08-05 00:55 | NUR ---
HepaXa result came in, 1.04. Verified with KIRSTEN Arevalo. Heparin drip stopped for 2 hours. Ordered draw for PTT and HepaXa at 0300H per protocol.
[2019-08-05 03:48] LABS: PARTIAL THROMBOPLASTIN TIME 45.1 SECONDS (26.0-37.0)
[2019-08-05 03:54] LABS: BASO % 0.4 % (0.0-2.0); EOS # 0.2 (0.0-0.7); EOS % 1.4 % (0-4.0); GRAN # 7.7 (1.4-6.5); GRAN % 72.2 % (42.2-75.2); LYMPH # 1.6 (1.2-3.4); LYMPH % 14.7 % (20.0-51.0); MEAN CELL VOLUME 97 fl (80.0-100.0); MEAN CORPUSCULAR HGB CONC 32 g/dl (33.0-37.0); MEAN PLATELET VOLUME 9.5 fl (7.4-10.4); MONO # 1.2 (0.1-0.6); MONO % 10.8 % (1.7-9.3); PLATELET COUNT 229 K/mm3 (130-400); RED BLOOD COUNT 2.87 M/mm3 (4.20-5.60); REDCELL DISTRIBUTION WIDTH-CV 12.4 % (11.5-14.5)
[2019-08-05 03:55] LABS: HEMATOCRIT 27.8 % (42.0-52.0); HEMOGLOBIN 8.8 g/dl (13.5-18.0); MEAN CORPUSCULAR HEMOGLOBIN 31 pg (27.0-31.0)
[2019-08-05 03:59] LABS: CALCIUM 8.3 mg/dL (8.4-10.2); CREATININE, serum 1.11 (0.66-1.25)
--- NOTE | 2019-08-05 03:59 | NUR ---
HepaXa result is 0.039. Verified with Phoebe CURTIS regarding change of rate. New rate for heparin drip is 14 ml/hr.
--- NOTE | 2019-08-05 07:01 | NUR ---
Vancomycin Initial Dosing Pharmacy Note Ordering provider: Bryan Indication/duration: CELLULITS/OM/SEPSIS Relevant comorbidities: OBESITY LABS: WBC 10.6, SCr 1.1, CrCl 74 Recommendation: vancomycin ~15 mg/kg Loading dose: 2 grams in ED Maintenance dose: 1.25 grams every 12 hours Trough goal: 15-20 ug/mL. Trough 6/2 at 2030
--- NOTE | 2019-08-05 07:15 | NUR ---
awake resting in bed, bedside shift report received from KIRSTEN Aragon
--- NOTE | 2019-08-05 07:51 | NUR ---
Informed Dr. Vera for psych consult and Keara Bejarano for ortho consult via phone call. Endorsed to Annabella that infectious disease consult need to be notified.
--- NOTE | 2019-08-05 08:12 | NUR ---
called and left message for Dr Gaviria regarding consult
--- NOTE | 2019-08-05 08:20 | NUR ---
resting in bed, full assessment completed, see interventions for further info, left foot wrapped and CD&I, has good pulse to left foot, IV fluids and IV heparin continued
--- NOTE | 2019-08-05 08:30 | NUR ---
AIV services nurse in to place PICC
--- NOTE | 2019-08-05 09:45 | NUR ---
remains resting in bed, uses urinal at intervals, IV medications and fluids infusing per PICC,
--- NOTE | 2019-08-05 10:19 | NUR ---
The patient is on contact precautions. SW contacted the patient to discuss discharge plan. The patient lives in [place] with his ex-, Darlene Ernst (ph#[phone]). He reports independence with ADLs and has a cane, knee scooter, and two walkers. He also receives home health services for wound care from [facility]. AYESHA contacted and confirmed services from [facility] at [facility]. AYESHA faxed [facility] updates. The patient's PCP is Dr. Lloyd Calderon. He states that he will be switching to a doctor at [facility] soon. He receives his medications at [facility] and he reports no difficulties obtaining his meds. The patient does not have advanced directives in EMR, but he reports that he does have them completed and at home. He states that he will ask his ex to bring them to the hospital. He states that his DPOA-HC is his brother, Pio (c.ph#[phone],h.ph#[phone]). Pio lives in [place]. The patient states that he believes that he may have to have an amputation of his left food. SW to continue to follow.
--- NOTE | 2019-08-05 12:08 | NUR ---
all IV medications and fluids stopped as patient is going to MRI at this time
--- NOTE | 2019-08-05 13:10 | NUR ---
returned from MRI and IV fluids and medications restarted, Dr Forbes in to see patient
--- NOTE | 2019-08-05 14:27 | NUR ---
telemetry back on, Dr Brown in to see patient
--- NOTE | 2019-08-05 18:37 | NUR ---
medicated with dialudid 0.25mg slow IV, bedside shift report given to KIRSTEN sims
--- NOTE | 2019-08-05 19:20 | NUR ---
Received report from Annabella. Seen patient awake, lying in bed. He denies any pain as he said that he just got Dilaudid at around 6pm. Tried calling Dr. Lopez but it was leading me to a voicemail only. Annabella CURTIS informed me that she left 2 voicemail messages prior shift change to Dr. Lopez. Patient told me about the plans of BKA on monday. He said that he was finally able to agree to that plan. No definite time of procedure yet.
[2019-08-06] VITALS (8 sets, daily range): BP systolic 108–123; BP diastolic 56–89; PULSE 79–94; TEMP 98–100.8
--- NOTE | 2019-08-06 01:18 | NUR ---
Dr. Lopez called. Updated him about the patient. No fever, no diarrhea. For BKA on Monday.
--- NOTE | 2019-08-06 07:07 | NUR ---
Patient had an uneventful night. He just talked to me regarding his procedure for below knee amputation. He had complains of pain on his left foot but it was relieved with Dilaudid. Endorsed patient to [facility].
--- NOTE | 2019-08-06 08:07 | NUR ---
Assessment completed, alert/oriented, vital signs stable, denies pain this morning, heart RRR/ SR on tele, lungs CTA/ no reps.difficuilty, Ortho consulted/ planning for left BKA 08/07/19, left foot dressing is C/D/I, will allow patient to shower today and have ortho order for dressing placment, patient is sitting up eating breakfast, denies other needs
[2019-08-06 08:48] LABS: BASO # 0.1 (0.0-0.2); BASO % 0.5 % (0.0-2.0); EOS # 0.2 (0.0-0.7); EOS % 2.3 % (0-4.0); GRAN # 7.6 (1.4-6.5); GRAN % 77.3 % (42.2-75.2); LYMPH # 1.2 (1.2-3.4); LYMPH % 12.3 % (20.0-51.0); MEAN CELL VOLUME 98 fl (80.0-100.0); MEAN CORPUSCULAR HGB CONC 31 g/dl (33.0-37.0); MEAN PLATELET VOLUME 9.6 fl (7.4-10.4); MONO # 0.7 (0.1-0.6); PLATELET COUNT 196 K/mm3 (130-400); RED BLOOD COUNT 2.68 M/mm3 (4.20-5.60); REDCELL DISTRIBUTION WIDTH-CV 12.3 % (11.5-14.5)
[2019-08-06 08:49] LABS: HEMATOCRIT 26.3 % (42.0-52.0); HEMOGLOBIN 8.1 g/dl (13.5-18.0); MEAN CORPUSCULAR HEMOGLOBIN 30 pg (27.0-31.0)
[2019-08-06 09:13] LABS: CALCIUM 7.7 mg/dL (8.4-10.2); CREATININE, serum 0.84 (0.66-1.25); POTASSIUM 3.4 mmol/L (3.4-5.0)
--- NOTE | 2019-08-06 09:49 | NUR ---
hepXa level 0.26, increas by 100un/hr ( 1 ml/hr) TRA 17.5 ml/hr, recheck level in 6 hr
--- NOTE | 2019-08-06 14:33 | NUR ---
The patient is to have a BKA tomorrow. SW contacted the patient to review discharge plan and to discuss post-acute rehab. The patient is agreeable to post-acute rehab. He chose 1) [email or web address] 2) [facility]. SW consulted [facility] Director, Yazmin. AYESHA contacted and faxed a referral to Noel at [facility]. SW awaiting their screens.
--- NOTE | 2019-08-06 15:02 | NUR ---
Will swab patient for COVID 19 screen as he will likely needs SNF placement upon discharge from hospital, confirmed with hospitalist that the patient is NOT a suspect and does NOt need to be placed in droplet isolation
--- NOTE | 2019-08-06 17:00 | NUR ---
Patient is transferring to Surgical floor oom 343, I have called and given report to receiving nurse KIRSTEN Olivares, patient is ambulatory and I escorted him to room 343 at this time
--- NOTE | 2019-08-06 18:53 | NUR ---
Patient has done since transfer from [facility]. Heparin continues to infuse per orders. Denies further needs at this time. Will report off to valve assembler.
--- NOTE | 2019-08-06 20:40 | NUR ---
Resting in bed. Assessment complete. Lungs clear. Heart sounds normal. Bowels active x4. Pulses present. No edema noted at this time. Left foot dressing CDI in boot. Reports 10/10 pain. Provided with PRN dilaudid at this time. Temperature 100.6 oral. Given tylenol. Denies other needs at this time. Call light in reach.
--- NOTE | 2019-08-06 23:23 | NUR ---
HepXA 0.41. No change in rate. Verified by KIRSTEN Hernandez.
--- NOTE | 2019-08-07 04:30 | NUR ---
Patient heparin gtt stopped at this time.
[2019-08-07 04:54] VITALS: BP 125/63; PULSE 74; TEMP 98.8
--- NOTE | 2019-08-07 06:24 | NUR ---
Patient required x1 dose of dilaudid for pain control throughout night. Otherwise uneventful night. Resting in bed this AM. Call light in reach.
--- NOTE | 2019-08-07 06:58 | NUR ---
Report given to KIRSTEN Ruiz
[2019-08-07 07:14] LABS: BASO # 0.1 (0.0-0.2); BASO % 0.5 % (0.0-2.0); EOS # 0.4 (0.0-0.7); EOS % 3.7 % (0-4.0); GRAN % 74.5 % (42.2-75.2); LYMPH # 1.2 (1.2-3.4); LYMPH % 12.7 % (20.0-51.0); MEAN CELL VOLUME 98 fl (80.0-100.0); MEAN CORPUSCULAR HGB CONC 32 g/dl (33.0-37.0); MEAN PLATELET VOLUME 10.1 fl (7.4-10.4); MONO # 0.8 (0.1-0.6); MONO % 8.3 % (1.7-9.3); PLATELET COUNT 253 K/mm3 (130-400); RED BLOOD COUNT 2.84 M/mm3 (4.20-5.60)
[2019-08-07 07:17] LABS: HEMOGLOBIN 8.8 g/dl (13.5-18.0); MEAN CORPUSCULAR HEMOGLOBIN 31 pg (27.0-31.0)
[2019-08-07 07:18] LABS: HEMATOCRIT 27.9 % (42.0-52.0)
[2019-08-07 07:25] LABS: CALCIUM 8.9 mg/dL (8.4-10.2); CREATININE, serum 0.96 (0.66-1.25)
--- NOTE | 2019-08-07 07:40 | NUR ---
Spoke with Dr. Forbes as night manager reported patient would like to postpone surgery today as he thinks that the has the flu. Dr. Forbes would like the hospitalist to evaluate and decide. Spoke with RANDY Ruiz, and she will talk with Dr. Holloway regarding patient concerns and evaluating patient.
[2019-08-07 08:00] VITALS: BP 122/64; PULSE 84; TEMP 98.6
--- NOTE | 2019-08-07 08:07 | NUR ---
Lying in bed with eyes closed. Opens eyes when name called out. Patient denies pain at this time. Would like to delay surgery because he does not feel well, thinks he has the flu, and also because he does not feel he is in the right state of mind at this time, does not have positive thoughts. Having occasional nausea. Says last night he had generalized achiness and overall not feeling well. Dressing to left foot CDI with boot on. Explained that the hospitalist will come in to talk with him about how he is feeling and see if the surgery needs delayed. Patient says that it is going to be delayed if it is entirely up to him. Patient denies further needs at this time.
--- NOTE | 2019-08-07 08:38 | NUR ---
Hospitalist seen patient and they do not think the patient has the flu, having some psych issues at this time and patient is adament about holding off on having procedure today. Call made to Barbie in surgery and she will update Dr. Forbes.
--- NOTE | 2019-08-07 09:02 | NUR ---
Patient having increasing pain in left foot and requests pain medication. Will administer Dilaudid as prescribed.
[2019-08-07 12:00] VITALS: BP 118/73; PULSE 81; TEMP 98.8
--- NOTE | 2019-08-07 12:07 | NUR ---
Sitting up in bed eating lunch. Denies needs at this time. Fiance in room with the patient.
--- NOTE | 2019-08-07 14:03 | NUR ---
Sitting up in bed with eyes open watching TV and talking with fiance. Patient denies needs or concerns at this time. Patient smiling and more talkative.
--- NOTE | 2019-08-07 16:14 | NUR ---
Receive call from telemetry that the patient may have had a rhythm into a-flutter. EKG leads checked and are in place. Spoke with RANDY Ruiz, and orders placed for EKG.
[2019-08-07 16:22] VITALS: BP 117/63; PULSE 78; TEMP 99.7
--- NOTE | 2019-08-07 16:40 | NUR ---
Patient temp at 99.7, patient shivering in bed at times. Administered Tylenol as prescribed.
[2019-08-07 21:05] VITALS: BP 120/66; PULSE 79; TEMP 99.7
[2019-08-07 23:21] VITALS: BP 119/69; PULSE 76; TEMP 99.2
--- NOTE | 2019-08-08 03:47 | NUR ---
Patient has been able to rest in bed this shift. Patient has not had any complaints of nausea or vomiting. Patient has been afebrile this shift. Patient continues to have a cough. Antibiotics given. Patient has not required any pain medication this shift. Patient continues to be on contact percautions. Patient has a PICC line in the right upper arm, blood return noted. Heparin drip still being maintained, next draw at 0500.
[2019-08-08 04:39] VITALS: BP 121/62; PULSE 87; TEMP 99
[2019-08-08 07:20] LABS: BASO # 0.1 (0.0-0.2); BASO % 0.7 % (0.0-2.0); EOS # 0.5 (0.0-0.7); EOS % 4.9 % (0-4.0); GRAN # 7.4 (1.4-6.5); LYMPH # 1.5 (1.2-3.4); LYMPH % 14.6 % (20.0-51.0); MEAN CELL VOLUME 94 fl (80.0-100.0); MEAN CORPUSCULAR HGB CONC 32 g/dl (33.0-37.0); MEAN PLATELET VOLUME 9.7 fl (7.4-10.4); MONO # 0.8 (0.1-0.6); MONO % 7.5 % (1.7-9.3); PLATELET COUNT 288 K/mm3 (130-400); RED BLOOD COUNT 2.96 M/mm3 (4.20-5.60); REDCELL DISTRIBUTION WIDTH-CV 12.1 % (11.5-14.5)
[2019-08-08 07:32] LABS: CALCIUM 9.2 mg/dL (8.4-10.2); CREATININE, serum 0.98 (0.66-1.25); HEMATOCRIT 27.9 % (42.0-52.0); HEMOGLOBIN 8.9 g/dl (13.5-18.0); MEAN CORPUSCULAR HEMOGLOBIN 30 pg (27.0-31.0); POTASSIUM 3.5 mmol/L (3.4-5.0)
[2019-08-08 07:41] VITALS: BP 128/67; PULSE 92; TEMP 99
--- NOTE | 2019-08-08 08:33 | NUR ---
Sitting up in chair watching TV. Denies pain but says he would like a pain shot. Explain that we cannot give him pain medication if he is not having pain. Patient verbalizes understanding and will call if pain increases. Patient would like to shower later today. Reviewed consent for left BKA with the patient. Questions answered. Patient signs consent.Will place on chart. Patient denies further needs at this time.
--- NOTE | 2019-08-08 09:46 | NUR ---
Rating pain in left foot 10/10 and requests "pain shot". Administered Dilaudid as prescribed. Patient fiance in room.
[2019-08-08 11:08] VITALS: BP 123/75; PULSE 69; TEMP 98.8
--- NOTE | 2019-08-08 11:37 | NUR ---
Sitting up in bed getting ready to eat lunch. Rates pain in left foot 4/10, describes as smashing. Fiance in room with the patient. Patient denies additional needs at this time.
--- NOTE | 2019-08-08 12:52 | NUR ---
Payroll And Benefits Analyst attended clinical rounds with the team. Patient refused BKA yesterday but it has been rescheduled for tomorrow. Patient states he is now ready for surgery. AYESHA followed up with patient and Darlene after rounds and advised that [facility] can accept and that [facility] is still screening referral. Patient states he is agreeable to go to [facility] if [facility] cannot accept. AYESHA faxed updates to Noel at [facility] and will continue to follow.
[2019-08-08 15:15] VITALS: BP 113/57; PULSE 72; TEMP 99
--- NOTE | 2019-08-08 17:32 | NUR ---
Patient's friend brought dinner for patient to the hospital. JOHNATHON Johnson, picked up meal from ER entrance and provided to the patient. Patient denies concerns or needs at this time.
[2019-08-08 21:11] VITALS: BP 114/65; PULSE 78; TEMP 99.2
[2019-08-09] VITALS (14 sets, daily range): BP systolic 11–151; BP diastolic 48–88; PULSE 60–83; TEMP 97.7–99.1
--- NOTE | 2019-08-09 03:42 | NUR ---
Patient has rested well throughout the night. Denies pain. Patient has been NPO since midnight for surgery today. Heparin drip continues at 17ml/hr. HepXa therapeutic at 2300. No change made. Patient independent in his room. Utilizes walker and uses urinal for voiding. Antibiotics administered per orders. PICC line to right upper arm patent. Will continue to monitor patient.
--- NOTE | 2019-08-09 09:00 | NUR ---
Patient resting in bed at this time. Patient is alert oriented, and cooperative, denies pain at this time. Heparin drip was discontinued after the ordered stop time, called anesthesia to report the time it was stopped. Patient denies further needs, call light within reach.
--- NOTE | 2019-08-09 18:00 | NUR ---
Patient returned from PACU via bed. Post op checks initated. Patient is alert and oriented but sleepy, denies pain or needs, call light within reach.
[2019-08-10 03:54] VITALS: BP 109/64; PULSE 66; TEMP 98.1
--- NOTE | 2019-08-10 04:52 | NUR ---
Upon arrival to shift, patient called out and stated he needed some pain medication. By the time this nurse obtained pain medication and brought it to patient, he was visibly shaking and yelling at this nurse because the pain was so intense. Patient continued to yell and be very agitated. PRN morphine and norco given at this time. About 15 minutes later, patient stated he had some relief, then 20 minutes later, patient stated his pain was gone. Patient then apologized for his behavior. Patient educated on the importance of keeping on top of his pain, so it doesn't become this bad again. Patient verbalized understanding. PRN pain medication given as requested and ordered throughout the night. Pain well managed. Dressing to left BKA CDI. Patient utilizes urinal for voiding. Has not attempted to rise out of bed. Patient has not slept all night and states he is "manic, so my brain won't shut off." Patient denies any further needs. Will continue to monitor.
--- NOTE | 2019-08-10 08:00 | NUR ---
Alert. Denied pain in left stump. Immobilizer readjusted. States he didn't sleep last night. States he is manic.
[2019-08-10 08:40] VITALS: BP 115/71; PULSE 69; TEMP 97.8
[2019-08-10 09:13] LABS: BASO % 0.5 % (0.0-2.0); EOS # 0.4 (0.0-0.7); EOS % 5.3 % (0-4.0); GRAN # 5.4 (1.4-6.5); GRAN % 67.5 % (42.2-75.2); LYMPH # 1.4 (1.2-3.4); MEAN CELL VOLUME 96 fl (80.0-100.0); MEAN CORPUSCULAR HGB CONC 32 g/dl (33.0-37.0); MEAN PLATELET VOLUME 9.1 fl (7.4-10.4); MONO # 0.8 (0.1-0.6); MONO % 9.3 % (1.7-9.3); PLATELET COUNT 274 K/mm3 (130-400); RED BLOOD COUNT 2.88 M/mm3 (4.20-5.60); REDCELL DISTRIBUTION WIDTH-CV 12.1 % (11.5-14.5)
[2019-08-10 09:21] LABS: HEMATOCRIT 27.6 % (42.0-52.0); HEMOGLOBIN 8.7 g/dl (13.5-18.0); MEAN CORPUSCULAR HEMOGLOBIN 30 pg (27.0-31.0)
[2019-08-10 09:26] LABS: CALCIUM 8.7 mg/dL (8.4-10.2); CREATININE, serum 0.94 (0.66-1.25); POTASSIUM 3.8 mmol/L (3.4-5.0)
--- NOTE | 2019-08-10 11:00 | NUR ---
Medicated with Roxicodone for c/o pain. Refused ice pack.
--- NOTE | 2019-08-10 12:00 | NUR ---
Physical therapy worked with patient. Stood at bedside.
[2019-08-10 13:27] VITALS: BP 112/73; PULSE 65; TEMP 99.3
[2019-08-10 15:53] VITALS: BP 128/69; PULSE 78; TEMP 98
--- NOTE | 2019-08-10 16:30 | NUR ---
Medicated with [facility] for c/o left leg pain.
[2019-08-10 20:33] VITALS: BP 120/69; PULSE 72; TEMP 98.5
--- NOTE | 2019-08-10 20:38 | NUR ---
PT IN BED, ALERT AND ORIENTED X4. HAS RIGHT UPPER ARM PICC, NO REDNESS OR SWELLING. DRINKING PEPSI. MEDICATED WITH HS MEDS, INCLUDING OXYCODONE 10MG FOR 8/10 PAIN TO LEFT STUMP. USING URINAL AT BEDSIDE. EMPTIED 500CC OF CLEAR YELLOW URINE.
[2019-08-11 00:12] VITALS: BP 104/56; PULSE 72; TEMP 98
--- NOTE | 2019-08-11 02:15 | NUR ---
Pt awake, offered pain med, denies need at this time.
[2019-08-11 03:38] VITALS: BP 121/72; PULSE 66; TEMP 98
[2019-08-11 06:09] LABS: BASO # 0.1 (0.0-0.2); BASO % 0.8 % (0.0-2.0); EOS # 0.4 (0.0-0.7); EOS % 5.8 % (0-4.0); GRAN # 4.7 (1.4-6.5); GRAN % 63.9 % (42.2-75.2); LYMPH # 1.4 (1.2-3.4); LYMPH % 19.2 % (20.0-51.0); MEAN CELL VOLUME 96 fl (80.0-100.0); MEAN CORPUSCULAR HGB CONC 31 g/dl (33.0-37.0); MEAN PLATELET VOLUME 9.6 fl (7.4-10.4); MONO # 0.7 (0.1-0.6); MONO % 9.9 % (1.7-9.3); PLATELET COUNT 317 K/mm3 (130-400)
--- NOTE | 2019-08-11 06:15 | NUR ---
Takes AM meds without problem. Denies need for pain meds at this time.
[2019-08-11 06:20] LABS: HEMATOCRIT 28.9 % (42.0-52.0); MEAN CORPUSCULAR HEMOGLOBIN 30 pg (27.0-31.0)
[2019-08-11 06:21] LABS: CALCIUM 9.2 mg/dL (8.4-10.2); CREATININE, serum 0.94 (0.66-1.25); POTASSIUM 3.7 mmol/L (3.4-5.0)
--- NOTE | 2019-08-11 06:43 | NUR ---
ASKING FOR PAIN MEDS, GIVEN OXYCODONE 10MG PO AT THIS TIME.
[2019-08-11 07:41] VITALS: BP 128/69; PULSE 71; TEMP 98
--- NOTE | 2019-08-11 08:00 | NUR ---
Drowsy. No c/o pain. Immobilizer in place to left stump. Taking fluids well. Voiding large amounts urine per urinal.
--- NOTE | 2019-08-11 10:30 | NUR ---
Pain meds given per request after working with physical therapy.
[2019-08-11 11:35] VITALS: BP 121/76; PULSE 68; TEMP 98.8
--- NOTE | 2019-08-11 15:00 | NUR ---
AYESHA faxed weekend updates to [facility] at [phone].
--- NOTE | 2019-08-11 15:30 | NUR ---
Medications given for c/o constipation.
[2019-08-11 15:58] VITALS: BP 121/70; PULSE 69; TEMP 97.7
--- NOTE | 2019-08-11 18:30 | NUR ---
Medicated with Oxycodone for c/o pain. States passed gas, but no bowel movement yet.
--- NOTE | 2019-08-11 20:24 | NUR ---
PT DENIES HAVING BM. TAKES HS MEDS INCLUDING COLACE AND SENNA. DENIES PAIN. HAS IMMOBILIZER TO LEFT LEG, DRSG D/I TO STUMP. RT PICC FLUSHED WELL. HOPES TO GO TO [facility] TOMORROW. REMAINS ON CONTACT ISOLATION FOR MRSA IN NARES.
[2019-08-11 20:27] VITALS: BP 115/67; PULSE 70; TEMP 98.2
--- NOTE | 2019-08-12 00:30 | NUR ---
Pt denies need for pain meds at this time.
[2019-08-12 00:43] VITALS: BP 118/66; PULSE 70; TEMP 99
[2019-08-12 04:10] VITALS: BP 119/70; PULSE 75; TEMP 98.9
[2019-08-12 07:07] LABS: BASO # 0.1 (0.0-0.2); EOS # 0.4 (0.0-0.7); EOS % 6.2 % (0-4.0); GRAN # 4.4 (1.4-6.5); GRAN % 62.8 % (42.2-75.2); LYMPH # 1.4 (1.2-3.4); LYMPH % 19.4 % (20.0-51.0); MEAN CELL VOLUME 96 fl (80.0-100.0); MEAN CORPUSCULAR HGB CONC 32 g/dl (33.0-37.0); MEAN PLATELET VOLUME 9.7 fl (7.4-10.4); MONO # 0.7 (0.1-0.6); PLATELET COUNT 362 K/mm3 (130-400); RED BLOOD COUNT 3.09 M/mm3 (4.20-5.60); REDCELL DISTRIBUTION WIDTH-CV 12.1 % (11.5-14.5)
[2019-08-12 07:21] LABS: CALCIUM 9.5 mg/dL (8.4-10.2); CREATININE, serum 0.95 (0.66-1.25); POTASSIUM 3.6 mmol/L (3.4-5.0)
[2019-08-12 07:30] LABS: HEMATOCRIT 29.7 % (42.0-52.0); HEMOGLOBIN 9.4 g/dl (13.5-18.0); MEAN CORPUSCULAR HEMOGLOBIN 30 pg (27.0-31.0)
[2019-08-12 08:34] VITALS: BP 127/66; PULSE 93; TEMP 98.6
[2019-08-12 11:50] VITALS: BP 115/78; PULSE 71; TEMP 98.8
--- NOTE | 2019-08-12 14:06 | NUR ---
Yazmin, IPR Director, reports that she has submitted the patient's information to insurance and is awaiting auth. SW updated the clinical team. SW to continue to follow.
[2019-08-12 15:22] VITALS: BP 126/71; PULSE 74; TEMP 99
--- NOTE | 2019-08-12 18:00 | NUR ---
Patient has been doing well today. He had some pain after working with OT, other mei no pain today. Dr Gaston changed dressing in am. Changed dressing to PICC line. Also changed PICC caps at this time. Patient sat up in the chair most the day. He got back to bed on his own. He is able to do pivot transfers well on his own. No other changes at this time.
--- NOTE | 2019-08-12 20:00 | NUR ---
Report recieved, assumed care for night order selector. A&Ox3. Assessment complete. VS stable. Denies pain/nausea/shortness of breath. PICC to right upper arm flushed-flushes without difficulty. Dressing to left BKA CDI-gauze/srinivas. Technol brace applied. Elevated on pillows. Right heal/foot noted to be slightly red. States that this is normal due to previous infection in heal as well as prior to surgery to right foot. SCD applied to right leg. Denies questions/concerns. Call light in reach. Will monitor.
[2019-08-12 20:31] VITALS: BP 120/70; PULSE 76; TEMP 99.4
[2019-08-13 00:08] VITALS: BP 133/61; PULSE 82; TEMP 97.6
--- NOTE | 2019-08-13 04:00 | NUR ---
Rested until 1 am but did not sleep well since-states this is his normal. Denies pain/shortness of breath/nausea. Technol brace off at this time per request. Denies needs. Call light in reach. Will monitor.
[2019-08-13 04:12] VITALS: BP 125/71; PULSE 73; TEMP 98.9
--- NOTE | 2019-08-13 06:45 | NUR ---
Report to KIRSTEN Ervin
[2019-08-13 07:57] VITALS: BP 131/68; PULSE 76; TEMP 98.7
--- NOTE | 2019-08-13 09:49 | NUR ---
Yazmin, [facility] Director, reports that she received auth from the patient's insurance and is able to accept him. AYESHA notified Noel at [facility]. The patient is to discharge today, 08/12, to [facility]. No additional needs at this time.
[2019-08-13] MEDS ORDERED: LOVENOX 100100 MG/ML SQ (11:53)
[2019-08-13] MEDS ORDERED: TOPROL XL 25MG25 MG PO (11:55)
[2019-08-13] MEDS ORDERED: LITHIUM 30300 MG/CAP PO ×2 (11:56→16:42)
[2019-08-13] MEDS ORDERED: NORCO 325 MG-7.1 TAB PO (11:57)
[2019-08-13] MEDS ORDERED: DULCOLAX STOOL100 MG PO (14:10)
[2019-08-13] MEDS ORDERED: SENOKOT S 50 MG1 TAB PO (14:26)
--- NOTE | 2019-08-13 15:15 | NUR ---
Patient is being transferred to [facility]. Patient has his belongings all packed up since earlier today. Report given to Tressa Rubio RN. Patient moved over via wheel chair. All belongings moved by Elizabeth and Lauri DIEGO's. No other changes at this time.
[2019-08-13] MEDS ORDERED: SENNA-S 50 MG-81 TAB PO (15:29)
[2019-08-13] MEDS ORDERED: GOOD SENSE400 MG/5 M PO (16:39)
[2019-08-13] MEDS ORDERED: DAZIDOX10 MG PO (16:41)
[2019-08-13] MEDS ORDERED: ZOFRAN ODT4 MG PO (16:42)
== END 2019-08-13 15:15 | DRG 854 ==
LOC: COL.ER 17:09 → SURG 19:51 → MEDICAL 19:51 → SURG 08-06 17:00 → MEDICAL 08-13 09:33 → SURG 08-13 15:15
PROVIDERS: Emergency Medicine; Nurse Practitioner Family; Orthopaedic Surgery; Physician Assistant; ADMIT Hospitalist
PROC: 0Y6J0Z1 Detachment at Left Lower Leg, High, Open Approach (ICD-10-PCS; principal; 2019-08-09 13:45)
DX: A41.02 Sepsis due to Methicillin resistant Staphylococcus aureus (principal); L97.429 Non-pressure chronic ulcer of left heel and midfoot with unspecified severity; I82.402 Acute embolism and thrombosis of unspecified deep veins of left lower extremity; E87.1 Hypo-osmolality and hyponatremia; E87.2 Acidosis; I50.30 Unspecified diastolic (congestive) heart failure; I13.0 Hypertensive heart and chronic kidney disease with heart failure and stage 1 through stage 4 chronic kidney disease, or unspecified chronic kidney disease; M86.8X7 Other osteomyelitis, ankle and foot; Z86.718 Personal history of other venous thrombosis and embolism; I95.9 Hypotension, unspecified; N18.9 Chronic kidney disease, unspecified; D63.1 Anemia in chronic kidney disease; E78.5 Hyperlipidemia, unspecified; E03.9 Hypothyroidism, unspecified; F31.9 Bipolar disorder, unspecified; K21.9 Gastro-esophageal reflux disease without esophagitis; G20 Parkinson's disease; F41.1 Generalized anxiety disorder; Z22.322 Carrier or suspected carrier of Methicillin resistant Staphylococcus aureus; E66.01 Morbid (severe) obesity due to excess calories; Z68.27 Body mass index [BMI] 27.0-27.9, adult
CPT/HCPCS: 99223-AI; 99231-AI; 99232-AI; 99233-AI; 99239; C1751; G0463; J0690; J1170; J1644; J1650; J2250; J2270; J2405; J2543; J2704; J2795; J3010; J3370; J7030; J7040; J7050; L1830

== ENCOUNTER 2019-08-13 10:42 | Inpatient (IN) | payer MEDICARE, MEDICAID ==
[~2019-08-13] VITALS: Ht 185.4 cm; Wt 86.9 kg
[~2019-08-13 10:42] MED LIST changes: +BACTRIM DS 8001 TAB PO; +DESYREL 100MG100 MG PO; +LAMICTAL 100MG100 MG PO; +LITHIUM CA150 MG/CAP PO; +METAMUCIL3.4 GM/DOS PO; +PRINIVIL5 MG PO
[2019-08-13] MEDS ORDERED: LOVENOX 100100 MG/ML SQ (11:53)
[2019-08-13] MEDS ORDERED: TOPROL XL 25MG25 MG PO (11:55)
[2019-08-13] MEDS ORDERED: LITHIUM 30300 MG/CAP PO ×2 (11:56→16:42)
[2019-08-13] MEDS ORDERED: NORCO 325 MG-7.1 TAB PO (11:57)
[2019-08-13] MEDS ORDERED: DULCOLAX STOOL100 MG PO (14:10)
[2019-08-13] MEDS ORDERED: SENOKOT S 50 MG1 TAB PO (14:26)
[2019-08-13] MEDS ORDERED: SENNA-S 50 MG-81 TAB PO (15:29)
[2019-08-13 16:13] VITALS: BP 134/79; PULSE 73; TEMP 98.7
[2019-08-13] MEDS ORDERED: GOOD SENSE400 MG/5 M PO (16:39)
[2019-08-13] MEDS ORDERED: DAZIDOX10 MG PO (16:41)
[2019-08-13] MEDS ORDERED: ZOFRAN ODT4 MG PO (16:42)
--- NOTE | 2019-08-13 20:00 | NUR ---
PATIENT UP IN CHAIR DURING CHANGE OF SHIFT REPORT FROM DAY SHIFT NURSELORIE. CHAIR ALARM ON. DENIES ANY NEEDS AT TIME OF REPORT. PATIENT REPORTED FROM DAY SHIFT X1 ASST WITH GB AND WW. PATIENT STATES HE WILL STAND AT BED SIDE TO VOID, DID NOT WANT TO WALK TO BATHROOM TONIGHT. INITIALLY AGREED TO HAVE CONDOM CATHETER PLACED THEN WANTED RE-EVALUATE VOIDING SITUATION IN THE MORNING AND DECIDE IF HE WILL HAVE CONDOM CATHETER PLACE OR NOT. PATIENT IN CONTACT ISOLATION FOR MRSA.
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
--- NOTE | 2019-08-14 02:00 | NUR ---
PATIENT RESTING IN BED, STOOD TO VOID AT BED SIDE WITH ASST FROM STAFF WITH GB & WALKER, STAND SLIGHTLY UNSTEADY, MANAGED URINAL THE SECOND TIME SINCE HS/WHEN PUT TO BED.
[2019-08-14 06:12] VITALS: BP 123/67; PULSE 5; TEMP 98.6
--- NOTE | 2019-08-14 07:46 | NUR ---
PATIENT RESTING IN BED DURING CHANGE OF SHIFT REPORT GIVEN TO DAY SHIFT NURSEMICHAEL. PATIENT IN ISOLATION.
[2019-08-14 16:04] VITALS: BP 132/86; PULSE 75; TEMP 98.7
[2019-08-15 05:34] VITALS: BP 129/71; PULSE 76; TEMP 98.6
--- NOTE | 2019-08-15 09:33 | NUR ---
Pt awake and alert upon entry, Pt has C/O strong pain, medications given for relief, positioned for comfort, shift assessments complete, left Pt call light in reach, bed in lowest position.
--- NOTE | 2019-08-15 16:50 | NUR ---
AYESHA attempted to meet with the patient to complete initial intake and to present and review the [facility] Team Conference Note. The patient was sleeping and did not wake. AYESHA then contacted the patient's ex-, Darlene (ph#[phone]), to complete intake. The patient lives in [place] with Darlene. Darlene reports that they are going to be remarring next Monday. She reports that the patient was independent with ADLs prior to hospitalization and that he has a cane, knee walker, two walkers, and a shower chair. He was also receives home health services for wound care from [facility]. The patient's PCP is Dr. Calderon, but Darlene states that he will be switching to Dr. Claudia Kasper. He receives his medications at [facility]. Darlene reports that the patient does have a DPOA-HC completed and it designates his brother, Pio (ph#[phone]). She states that they are planning on completing a new one, since they are getting remarried. AYESHA then lost the phone call with Darlene. AYESHA attempted to contact her back. The voicemail was full. SW to continue to follow.
[2019-08-15 17:12] VITALS: BP 134/86; PULSE 84; TEMP 99
--- NOTE | 2019-08-15 22:00 | NUR ---
PT SITTING UP IN BED. ALITTLE AGITATED. PT REPORTS HE FEELS MANIC. MEDS PROVIDED AT THIS TIME. ALSO GAVE PAIN MED AND PAIN LEVEL 6/10 TO [facility]. REMAINS IN ISLOLATION FOR MRSA. PURPLE PORT OF PICC LINE NOT FLUSHING OR PULLING BLOOD. RED PORT WORKS WELL. USING URINAL FOR URGENCY. IMMOBILIZER ON TO STUMP AT THIS TIME. ELEVATED LEGS WITH PILLOWS. CALL LIGHT IN REACH. BED ALARM SET,PT IN BETTER SPIRITS NOW.
[2019-08-16 05:10] VITALS: BP 139/81; PULSE 86; TEMP 99.4
--- NOTE | 2019-08-16 05:45 | NUR ---
CHANGE LT STUMP DRSG. PT TOLERATED WELL. OLD DRSG HADDMINIMAL DRIED BLOODY DRG. INCISION WELL APPROXIMATED WITH ADWOA. SL SWOLLEN AT DISTAL END. ENC PT TO KEEP ELEVATED. PT TOLERSATE IMMOBLIZER WELL WHILE IN BED.
[2019-08-16 07:39] LABS: BASO # 0.1 (0.0-0.2); BASO % 0.4 % (0.0-2.0); EOS # 0.2 (0.0-0.7); EOS % 1.6 % (0-4.0); GRAN # 10.2 (1.4-6.5); GRAN % 77.7 % (42.2-75.2); LYMPH # 1.4 (1.2-3.4); LYMPH % 10.9 % (20.0-51.0); MEAN CELL VOLUME 95 fl (80.0-100.0); MEAN CORPUSCULAR HGB CONC 32 g/dl (33.0-37.0); MEAN PLATELET VOLUME 9.1 fl (7.4-10.4); MONO # 1.2 (0.1-0.6); MONO % 8.8 % (1.7-9.3); PLATELET COUNT 421 K/mm3 (130-400); RED BLOOD COUNT 3.15 M/mm3 (4.20-5.60); REDCELL DISTRIBUTION WIDTH-CV 12.3 % (11.5-14.5)
[2019-08-16 07:49] LABS: HEMATOCRIT 29.9 % (42.0-52.0); HEMOGLOBIN 9.5 g/dl (13.5-18.0); MEAN CORPUSCULAR HEMOGLOBIN 30 pg (27.0-31.0)
[2019-08-16 07:59] LABS: CALCIUM 9.8 mg/dL (8.4-10.2); CREATININE, serum 0.99 (0.66-1.25); POTASSIUM 4.2 mmol/L (3.4-5.0)
--- NOTE | 2019-08-16 08:02 | NUR ---
Patient resting in bed at this time, call light in reach and getting ready for therapy to start. Patient reported having some dry heaves this morning, but after drinking soda was okay. Will continue to monitor.
--- NOTE | 2019-08-16 13:28 | NUR ---
Admission QIM scores were reviewed by the team. Code of 4 chosen for toileting hygiene was determined by team discussion to be the most usual performance before interventions for this patient during the assessment period. Code of 3 chosen for toilet transfers was determined by team discussion to be the most usual performance for this patient during the assessment period. Code of 4 chosen for sit to lying was determined by team discussion to be the most usual performance for this patient during the assessment period. Code of 4 chosen for lying to sitting on side of bed was determined by team discussion to be the most usual performance for this patient during the assessment period. Code of 4 chosen for sit to stand was determined by team discussion to be the most usual performance for this patient during the assessment period.--Yazmin Arreola, PD
--- NOTE | 2019-08-16 14:17 | NUR ---
Left message for Dr. Lopez awaiting a return call.
--- NOTE | 2019-08-16 16:07 | NUR ---
AYESHA met with the patient to present and review the [facility] Team Conference Note. AYESHA discussed the team's recommendation for a tentative discharge date for next Monday, 08/22, with home health PT/OT and a wheelchair. The patient was agreeable to the plan. He states that he would like to resume his home health services through [facility] for the PT/OT. AYESHA also discussed setting up a patient/family meeting for next Monday at 1300. The patient reports that this would work and that he will let his ex-, Darlene, know. SW to continue to follow.
[2019-08-16 17:21] VITALS: BP 129/81; PULSE 80; TEMP 99.6
--- NOTE | 2019-08-16 20:02 | NUR ---
Patient attended all therapies today. Pain was managed with prn pain meds. PICC line, purple port did not have any blood return, but was able to flush. This was communicated to KIRSTEN Hammond with night warehouse selector. See new orders for ID consult. This nurse called and left a message for Dr. Lopez, but did not receive a return reply. This was communicated to night nurse. Patient denied any questions this shift. Reported off to night nurse.
--- NOTE | 2019-08-16 21:30 | NUR ---
PT RESING IN BED WITH HOB ELEVATED. GOOD SOCIALIZATION AND COMMUNICATION WITH STAFF. SEE MAR FOR PAIN MED GIVEN FOR LT STUMP PAIN. IMMOBILIZER IN PLACE. PT DENIES BM TODAY. PAIN CONTROOLED WITH ROXICODONE AND NORCO. DOES ADMIT TO PHANTOM PAIN AT TIMES. CALL LIGHT IN REACH. BED ALARM SET.
[2019-08-17 05:12] VITALS: BP 143/79; PULSE 76; TEMP 98.4
[2019-08-17 17:06] VITALS: BP 119/78; PULSE 88; TEMP 98.7
--- NOTE | 2019-08-17 18:00 | NUR ---
Pain medications given prior and during therapy for c/o left stump pain. Dressing CDI. Vomited once after lunch. Had a milkshake in afternoon. No bowel movement today. Voiding large amounts yellow urine.
--- NOTE | 2019-08-17 19:00 | NUR ---
SHIFT REPORT RECEIVED FROM FLO CURTIS. PT RESTING IN BED. CHEERFUL AND TALKAIVE. USES URINAL AT THIS TIME. PLACED IMMOBILIZER ON LT STUMP. AND SCD TO RT LEG. NO NEEDS AT THIS TIME. CALLIGHT IN REACH.
--- NOTE | 2019-08-17 23:20 | NUR ---
Pt called out and requested something for pain pt was given (2) [facility] 7.5/325 @6244. Pt currently sitting up in bed and has his call light within reach. Pt brace was placed on his stump at this time. Pt dressing to stump was clean dry and intact. Pt stated he has no other concerns at this time. Pt was given Sprite and ice as requested at this time. Pt has his call light within reach and his bed is in lowest position.
--- NOTE | 2019-08-18 01:00 | NUR ---
PT C/O NAUSEA. ZOFRAN ODT GIVEN BY [place] CURTIS.
--- NOTE | 2019-08-18 02:41 | NUR ---
PT REQUEST 2 PAIN PILLS FOR LT STUMP PAIN LEVEL AT 8/10. PT VERY DROWSY. HARDLY ABLE TO KEEP EYES OPENED. ENC PT TO TAKE 1 TAB BUT PT RELATED HE NEEDED TWO. TOOK WITH PUDDING.
[2019-08-18 03:46] VITALS: BP 125/81; PULSE 73; TEMP 97.6
--- NOTE | 2019-08-18 04:33 | NUR ---
PT UP IN WC DOING AM CARES. PAIN MUCH BETTER NOW. NO NEEDS AT THIS TIME.
--- NOTE | 2019-08-18 06:17 | NUR ---
PT BACK IN BED. WATCHING TV. CONTINUE ISOLATION FOR MRSA. NO NEEDS AT THIS TIME.
[2019-08-18 17:01] VITALS: BP 131/72; PULSE 70; TEMP 98.3
--- NOTE | 2019-08-18 18:00 | NUR ---
Has required less pain medication today. Had bowel movement after suppository. Transfers with one assist to wheelchair. Took clear liquids for meals per his request.
--- NOTE | 2019-08-18 22:00 | NUR ---
PT RESTING IN BED. WITH HOB ELEVATED. PLACED IMMOBILIZER ON LT STUMP. DRSG CDI. ELEVATED ON PILLOWS. DENIES NEEDS AT THSI TIME. CALL LIGHT IN REACH.
--- NOTE | 2019-08-19 03:48 | NUR ---
AWAKE. SITTING UP IN BED. REQUESTING PAIN MEDICATION. SEE MAR. C/O NAUSEA GAVE ZOFRAN AND SPRITE. PT TOOK OFF IMMOBILIZER FOR NOW BUT HAS WORN IT ALL NIGHT. REMAINS IN ISOLATION FOR MRSA.
[2019-08-19 06:29] VITALS: BP 146/83; PULSE 86; TEMP 97.4
--- NOTE | 2019-08-19 09:06 | NUR ---
PATIENT DOWNSTAIRS IN PHYSICAL THERAPY. THERAPIST CALLED THIS NURSE STATING THE THAT PATIENT IS REQUESTING PAIN MEDICATION AT THIS TIME. PATIENT RATING HIS PAIN A 7/10 IN THE STUMP AND DESCRIBES THE PAIN SHARP. PATIENT GIVEN PRN PAIN MEDICATION AT THIS TIME.
--- NOTE | 2019-08-19 10:04 | NUR ---
PRE WAVE ASSEMBLER REPORTS THAT THE PATIENT HAS BEEN HAVING ALOT OF NAUSEA AND HAD AN EPISODE OF EMESIS OVERNIGHT. PATIENT HAS BEEN MOSTLY DOING CLEAR LIQUIDS FOR MEALS. POOR PO INTAKE. DIETITIAN LORIE CALLED AND NOTIFIED.
[2019-08-19 12:18] LABS: BASO # 0.1 (0.0-0.2); BASO % 0.3 % (0.0-2.0); EOS # 0.3 (0.0-0.7); EOS % 1.9 % (0-4.0); GRAN # 11.8 (1.4-6.5); GRAN % 81.8 % (42.2-75.2); LYMPH # 1.4 (1.2-3.4); LYMPH % 9.6 % (20.0-51.0); MEAN CELL VOLUME 94 fl (80.0-100.0); MEAN CORPUSCULAR HGB CONC 32 g/dl (33.0-37.0); MEAN PLATELET VOLUME 9.3 fl (7.4-10.4); MONO # 0.9 (0.1-0.6); MONO % 6.1 % (1.7-9.3); PLATELET COUNT 555 K/mm3 (130-400); RED BLOOD COUNT 3.04 M/mm3 (4.20-5.60); REDCELL DISTRIBUTION WIDTH-CV 12.2 % (11.5-14.5)
[2019-08-19 12:29] LABS: HEMATOCRIT 28.5 % (42.0-52.0); HEMOGLOBIN 9.2 g/dl (13.5-18.0); MEAN CORPUSCULAR HEMOGLOBIN 30 pg (27.0-31.0)
--- NOTE | 2019-08-19 12:43 | NUR ---
RANDY HARDEN CALLED AND NOTIFIED THAT BOTH OF THE LUMENS ON THE PATIENTS PICC LINE WILL NOT FLUSH. ORDER FOR CATH FLOW GIVEN TORB BY RANDY HARDEN TO THIS NURSE.
--- NOTE | 2019-08-19 14:00 | NUR ---
PICC intact right upper arm with sterile dressing change done with insertion site cleasned with chloraprep x 1, chlorhexidine impregnate disk, skin prep, stat lock, and tegaderm applied. red port flushed with 10ml normal saline with blood return. unable to flush purple port. primary care nurse to obtain an order for cath-thelma.
--- NOTE | 2019-08-19 14:10 | NUR ---
CATH FLOW INSTILLED INTO PURPLE LUMEN WITH SOME RESISTANCE. UNABLE TO PUSH CATH FLOW THROUGH RED LUMEN. SYRINGE LEFT ATTACHED TO LUMEN FOR INSTILLATION.
--- NOTE | 2019-08-19 14:40 | NUR ---
CATH FLOW INSTILLED INTO RED LUMEN AT THIS TIME. UNABLE TO ASPIRATE BLOOD FROM PURPLE LUMEN. WILL CONTINUE TO MONITOR.
--- NOTE | 2019-08-19 14:43 | NUR ---
AYESHA met with the patient to follow up after the weekend. The patient states that he is doing okay. He states that he got sick this weekend and was switched to a clear liquid diet. He states that he was able to sleep well last night. AYESHA reviewed the patient/family conference meeting tomorrow at 1300. The patient reports that he will remind Kiarrae of the meeting. SW to continue to follow.
--- NOTE | 2019-08-19 16:25 | NUR ---
RED AND PURPLE PICC LINE LUMENS ASPIRATED AT THIS TIME. BLOOD RETURN OBTAINED AND SYRINGES OF BLOOD DISCARDED FROM EACH LUMEN. BOTH PURPLE AND RED LUMENS FLUSHED WITH 20 MLS OF SALINE.
--- NOTE | 2019-08-19 16:30 | NUR ---
DRESSING REMOVED FROM LEFT STUMP. ADWOA INTACT. EDGES WELL APPROXIMATED. SCANT AMOUNTS OF OLD SEROUS DRAINAGE PRESENT ON THE GAUZE WHEN DRESSING WAS REMOVED. DRY SKIN AT THE END OF THE STUMP NOTED. SLIGHT REDNESS AND EDEMA TO THE LEFT STUMP. LEFT BKA SITE DRESSED WITH ONE PACK OF STERILE 4X4 GAUZE, ONE ABD PAD, GAUZE ROLL AND SECURED WITH AN EBONY WRAP. PATIENT TOLERATED WELL. EXTREMITY ELEVATED ON PILLOW. CALL LIGHT WITHIN REACH. BED ALARM ON. NO NEEDS AT THIS TIME.
[2019-08-19 17:22] VITALS: BP 121/71; PULSE 75; TEMP 98.6
--- NOTE | 2019-08-19 19:56 | NUR ---
REPORT GIVEN TO KIRSTEN FORRESTER.
--- NOTE | 2019-08-19 20:00 | NUR ---
Received report from KIRSTEN Mcadams. Pt currently sitting up in bed. Pt has his call light within reach.
[2019-08-20 04:16] VITALS: BP 142/86; PULSE 82; TEMP 98.8
--- NOTE | 2019-08-20 04:37 | NUR ---
Pt called out requesting something for pain and to get up and get dressed. Pt was given pain medication at this time and was helped with getting dressed. Pt is currently in bed and has no other concerns at this time. Pt is in a very good mood this morning and stated that he appreciated me just listening to him.He stated that it really helped him this morning. Pt has his call light within reach and his bed is in lowest position.
--- NOTE | 2019-08-20 07:48 | NUR ---
Reported off to KIRSTEN Perales. Pt currently sitting up in bed. Pt has his call light within reach and his bed is in lowest position with his alarm on.
--- NOTE | 2019-08-20 11:21 | NUR ---
Patient attended therapies this morning. Given prn pain meds with good effect. Good blood return with poth PICC line ports this morning. Dressing to left leg stump is clean dry and intact. Will continue to monitor.
--- NOTE | 2019-08-20 15:31 | NUR ---
SW attended a family meeting with patient and his ex-, Darlene. Also present was IPR Director, PT, OT. IPR Director, Yazmin, started by explaining the purpose of the meeting. PT/OT then discussed the patient's progress. The team discussed how they have set a tentative discharge date for this Monday, 08/22, with home health services, but how this date could change depending on the scans he will be having. The patient and Darlene verbalized understanding. The team answered all questions. SW to continue to follow.
[2019-08-20 16:41] LABS: COLLECTION METHOD CLEAN CATCH
[2019-08-20 16:49] LABS: PH 7 (5-8); SQUAMOUS EPITHELIAL None Seen /hpf; URINE APPEARANCE Clear; URINE BACTERIA None Seen /hpf; URINE BILIRUBIN Negative (NEGATIVE); URINE BLOOD Negative (NEGATIVE); URINE COLOR Straw; URINE GLUCOSE Negative (NEGATIVE); URINE KETONE Negative (NEGATIVE); URINE LEUKOCYTE ESTERASE Negative (NEGATIVE); URINE NITRATE Negative (NEGATIVE); URINE PROTEIN(semi-quant) Negative (NEGATIVE); URINE RBC 0-2 /hpf; URINE UROBILINOGEN Negative (NEGATIVE)
--- NOTE | 2019-08-20 17:25 | NUR ---
Dr. Tran called this afternoon see new orders for CT of LBKA and start of antibiotic due to elevated WBC count. Dr. Almeida saw patient and orderd CXR and urinalysis see results in EMR. Dressing to LBKA was changed yesterday so no dressing change was completed today. Patient did have an episode of sweating this afternoon following therapy, but vitals remained stable at thie time: 127/65; P 80, R 20, 02 100%. Patient continues to take prn Taylor and Oxy alternating and has been effective. Patient denies any questions at this time.
[2019-08-20 19:05] VITALS: BP 141/77; PULSE 69; TEMP 97.3
[2019-08-21 04:05] VITALS: BP 133/75; PULSE 73; TEMP 98.4
--- NOTE | 2019-08-21 04:47 | NUR ---
Patient rested in bed and watched tv this shift. Patient handled using the urinal by himself. Patient afebrile, Antibiotics given as ordered. Sarahn is ulternating onycodone and hydrocodone for pain management.
[2019-08-21 06:49] LABS: BASO # 0.1 (0.0-0.2); BASO % 0.5 % (0.0-2.0); EOS # 0.5 (0.0-0.7); EOS % 4.5 % (0-4.0); GRAN # 7.8 (1.4-6.5); GRAN % 69.2 % (42.2-75.2); LYMPH # 1.9 (1.2-3.4); LYMPH % 16.9 % (20.0-51.0); MEAN CELL VOLUME 95 fl (80.0-100.0); MEAN CORPUSCULAR HGB CONC 31 g/dl (33.0-37.0); MEAN PLATELET VOLUME 9.2 fl (7.4-10.4); MONO % 8.5 % (1.7-9.3); PLATELET COUNT 526 K/mm3 (130-400); RED BLOOD COUNT 2.91 M/mm3 (4.20-5.60); REDCELL DISTRIBUTION WIDTH-CV 12.3 % (11.5-14.5)
[2019-08-21 06:51] LABS: HEMATOCRIT 27.6 % (42.0-52.0); HEMOGLOBIN 8.6 g/dl (13.5-18.0); MEAN CORPUSCULAR HEMOGLOBIN 30 pg (27.0-31.0)
[2019-08-21 07:00] LABS: CALCIUM 9.8 mg/dL (8.4-10.2); CREATININE, serum 1.01 (0.66-1.25); MAGNESIUM 2.3 mg/dL (1.6-2.3)
--- NOTE | 2019-08-21 09:10 | NUR ---
Patient reported not sleeping well last night due to the night nurse not giving him two pills at at time instead of one. Patient also clarified that he had put himself on a liquid diet. He reported that last Tuesday 08/15 he vomited after eating chicken strips and salad. So he decided that he would just go on a liquid diet. Dietary is aware of this and he has been getting nutrition drinks to support this diet. Since then patient has had a couple of episodes of nausea, but has not vomited. Spoke with you Perales this morning and she wants to encourage him to eat more yogurt since he was put on an antibiotic yesterday. She will meet with patient this morning discuss any further recommendations.
--- NOTE | 2019-08-21 15:44 | NUR ---
AYESHA met with the patient and Kiarrae to present and review the IPR Team Conference Note. AYESHA discussed the team's recommendation for a discharge this Monday, 08/22, with home health PT/OT and the need for a wheelchair. The patient and Kiarrae were agreeable to the plan. The patient chose [facility] for the wheelchair. AYESHA contacted and faxed the patient's wheelchair order to Amanda at [facility]. AYESHA to continue to follow.
[2019-08-21 18:09] VITALS: BP 146/79; PULSE 79; TEMP 98.2
--- NOTE | 2019-08-21 20:22 | NUR ---
Patient was having constipation issues this shift and was given prn bowel meds. Patient had a large bowel movement this evening that was continent. He had one episode of incontinence on the floor in the bathroom when trying to make it to the toilet in time. Patient given prn Zofran through day. Patient given scheduled antibiotics today. Dr. Tran called today, see his note with no new orders.
--- NOTE | 2019-08-21 21:00 | NUR ---
SHIFT REC'D FROM LORIE PARKER RN. PT SLEEPING EARLIER. NO DISTRESS. REMINDED PT HE NEEDS TO PUT ON IMMOBILIZER ON WHILE IN BED. DENIES ANY NEEDS AT THIS TIME.
--- NOTE | 2019-08-21 23:30 | NUR ---
PT REQUESTED 2 PAIN PILLS. SEE MAY. RT STUMP PAIN LEVEL 6-7/10. REQUESTED SPRITE AND ICE ALSO. 20 MIN LATER PT HAD LG AMT OF APPROX 450CC THIN YELLOW EMESIS. ZOFRAN ODT GIVEN. NAUSEA RESOLVED. IV ABT STARTED. DRSG CHANGE TO RT STUMP. NO DRAINAGE NOTED ON OLD DRESSING. ADWOA INTACT. PT COVERS FACE THROUGHOUT. "I DON'T WANT TO SEE IT." ELEVATED ON PILLOWS. ENC PT TO PLACE IMMOBILIZER- PT RELATES HE IS ABLE TO DO HIMSELF. CALL LIGHT IN REACH. CONTINUES MOD IN ROOM WITH WALKER.
[2019-08-22 05:22] VITALS: BP 125/78; PULSE 81; TEMP 98.6
--- NOTE | 2019-08-22 10:20 | NUR ---
Assessment completed, alert/oriented, vital signs stable, pain is moderate and treating with PO Hydrocodone/ discussed with him benefits of slowly backing down on pain medicaiton and trying to minimize the use, Ortho has been by and ordered to removed ulisses today, stump looks good/ no drainage and will apply dressing affter removing ulisses, up working with OT at this time, denies other needs
[2019-08-22 11:00] VITALS: BP 131/73; PULSE 81; TEMP 98.3
--- NOTE | 2019-08-22 11:30 | NUR ---
Patient started acting not like himself, he is having trouble finding his words and expressing his needs, OT was helping him shower and stated he was unable to initiate tasks when asked and that this was a change from yesterday, he does know where he is at, I checked his Vital signs and they are all stable/ Aferile, I notified of the situation and he said he would come lay eyes on him in a little while
--- NOTE | 2019-08-22 15:00 | NUR ---
ulisses removed from left stump, 31 ulisses removed, area cleaned and dressing placed per Ortho orders
--- NOTE | 2019-08-22 15:44 | NUR ---
SW contacted the patient via room telephone to present the IM form. The patient understood and gave SW permission to sign on his behalf. A copy was provided to the patient and the original was placed in the chart.
--- NOTE | 2019-08-22 16:15 | NUR ---
AYESHA followed up with Sara at [facility] about the wheelchair. Sara reports that they will deliver the wheelchair to the patient's room tomorrow morning. AYESHA contacted Seble at [facility] and confirmed discharge for tomorrow. AYESHA to continue to follow.
[2019-08-22 18:32] VITALS: BP 128/73; PULSE 83; TEMP 98.4
--- NOTE | 2019-08-22 21:00 | NUR ---
PT MOD I IN ROOM. PRESENTLY RESTING IN BED. A&O. IMMOBILIZER AND STUMP OIL DISPATCHER IN PLACE. SEE MAR FOR PAIN MEDS.
[2019-08-23 05:14] VITALS: BP 139/69; PULSE 67; TEMP 97.3
--- NOTE | 2019-08-23 08:00 | NUR ---
Patient resting in bed eating breakfast at this time. Patient is alert and oriented, answers questions appropriately. Patient is in good spirits this morning and is looking forward to going home. Patient denies pain in left leg at this time, states he is comfortable. Patient denies further needs at this time, call light within reach.
[2019-08-23] MEDS ORDERED: ZOFRAN ODT4 MG PO (11:11)
[2019-08-23] MEDS ORDERED: TYLENOL 325MG325 MG PO (11:11)
[2019-08-23] MEDS ORDERED: NORCO 325 MG-51 TAB PO (11:12)
[2019-08-23] MEDS ORDERED: DOXYCYCLINE 10100 MG PO (11:15)
[2019-08-23] MEDS ORDERED: LOVENOX 100100 MG/ML SQ (11:23)
--- NOTE | 2019-08-23 13:56 | NUR ---
Rotary Cutter faxed orders for PT/OT/Penitentiary to [facility]. No additional needs at this time.
--- NOTE | 2019-08-23 16:11 | NUR ---
Discharge teaching completed. Patient and significant other present during teaching. Discussed discharge instructions, bathing restrictions, wound care, follow up appointments, and discharge medications. Discussed how to self administer lovonox shots, patient stated he had been watching them be administered while he was here and watched some instructional videos online. Patient and significant other deny questions or concerns. Patient escorted to ED entrance where he entered a private vehicle.
== END 2019-08-23 16:38 | disposition home or self-care (01) | DRG 947 ==
PROVIDERS: Internal Medicine Infectious Disease; Nurse Practitioner Family; ADMIT Internal Medicine
DX: R53.81 Other malaise (principal); A41.9 Sepsis, unspecified organism; M86.9 Osteomyelitis, unspecified; I50.32 Chronic diastolic (congestive) heart failure; I82.402 Acute embolism and thrombosis of unspecified deep veins of left lower extremity; N17.9 Acute kidney failure, unspecified; D47.3 Essential (hemorrhagic) thrombocythemia; I50.9 Heart failure, unspecified; I11.0 Hypertensive heart disease with heart failure; D64.9 Anemia, unspecified; G20 Parkinson's disease; G47.33 Obstructive sleep apnea (adult) (pediatric); F31.9 Bipolar disorder, unspecified; F41.9 Anxiety disorder, unspecified; E78.5 Hyperlipidemia, unspecified; E66.01 Morbid (severe) obesity due to excess calories; E03.9 Hypothyroidism, unspecified; L89.629 Pressure ulcer of left heel, unspecified stage; K21.9 Gastro-esophageal reflux disease without esophagitis; K59.00 Constipation, unspecified; Z79.01 Long term (current) use of anticoagulants; Z79.891 Long term (current) use of opiate analgesic; Z89.512 Acquired absence of left leg below knee; Z86.711 Personal history of pulmonary embolism
CPT/HCPCS: 99222-AI; 99231-AI; 99232-AI; 99233-AI; 99239; J1650; J2543; J2997; Q9967

== ENCOUNTER 2019-08-27 08:02 | Inpatient (IN) | payer MEDICARE, MEDICAID ==
[2019-08-27] VITALS (8 sets, daily range): BP systolic 95–116; BP diastolic 38–78; PULSE 57–70; TEMP 97.5–97.6
[~2019-08-27] VITALS: Ht 185.4 cm; Wt 85.5 kg
[~2019-08-27 08:02] MED LIST changes: +DAZIDOX10 MG PO; +DOXYCYCLINE 10100 MG PO; +DULCOLAX STOOL100 MG PO; +GOOD SENSE400 MG/5 M PO; +LOVENOX 100100 MG/ML SQ; +NORCO 325 MG-51 TAB PO; +SENNA-S 50 MG-81 TAB PO; +SENOKOT S 50 MG1 TAB PO; +TOPROL XL 25MG25 MG PO; +ZOFRAN ODT4 MG PO
[2019-08-27 09:10] LABS: BASO # 0.1 (0.0-0.2); BASO % 0.6 % (0.0-2.0); EOS # 0.4 (0.0-0.7); EOS % 4.6 % (0-4.0); GRAN # 5.6 (1.4-6.5); GRAN % 70.6 % (42.2-75.2); LYMPH # 1.3 (1.2-3.4); LYMPH % 16.3 % (20.0-51.0); MEAN CELL VOLUME 93 fl (80.0-100.0); MEAN CORPUSCULAR HGB CONC 32 g/dl (33.0-37.0); MONO # 0.6 (0.1-0.6); MONO % 7.5 % (1.7-9.3); PLATELET COUNT 433 K/mm3 (130-400); RED BLOOD COUNT 3.03 M/mm3 (4.20-5.60); REDCELL DISTRIBUTION WIDTH-CV 13.6 % (11.5-14.5)
[2019-08-27 09:14] LABS: HEMATOCRIT 28.3 % (42.0-52.0); MEAN CORPUSCULAR HEMOGLOBIN 30 pg (27.0-31.0)
[2019-08-27 09:19] LABS: BILIRUBIN,TOTAL 0.4 mg/dL (0.0-1.0); CALCIUM 9.7 mg/dL (8.4-10.2); CREATININE, serum 1.04 (0.66-1.25); POTASSIUM 3.7 mmol/L (3.4-5.0); TOTAL PROTEIN 7.9 gm/dL (6.4-8.2)
[2019-08-27 09:24] LABS: INR 1.2 (0.8-3.0); PROTHROMBIN TIME 13.4 SECONDS (9.7-12.8)
--- NOTE | 2019-08-27 10:50 | NUR ---
Notified Dr. Avery that patient is up to room from ER. New order for morphine entered.
--- NOTE | 2019-08-27 11:05 | NUR ---
Patient up from ER. Alert and oriented x 3. Assessment complete. Left BKA noted with Incision dehiscence. Patient denies pain at this time. Denies further needs at this time.
--- NOTE | 2019-08-27 12:30 | NUR ---
Patient in bed. continues to deny pain. Family at bedside.
--- NOTE | 2019-08-27 14:33 | NUR ---
Patient down to OR. Patient changed into gown independently. Brushed teeth. Preop fluids infusing. Restarted IV to Left AC x 2 attempts.
--- NOTE | 2019-08-27 17:10 | NUR ---
Patient up from OR. Alert and oriented x 3. Acewrap to LLE is CDI. Hemovac noted with bloody drainage present. Post op VSS. Post op fluids infusing. Deneis pain at this time. States BLE numb from spinal. No further needs at this time.
--- NOTE | 2019-08-27 18:27 | NUR ---
Patient has done well since up from OR. Tolerating diet without difficulties. Denies pain at this time. Denies further needs at this time. Will report off to second shift supervisor.
--- NOTE | 2019-08-27 23:15 | NUR ---
Patient was reporting cramping and spasms in her bladder and was unable to void though she had the urge. Bladder scan performed showed 345 mL in bladder. This nurse called Dr. Hanna to update on patient situation and to address further retention. New order to straight cath one time if patient is unable to void in the next two hours.
--- NOTE | 2019-08-28 01:45 | NUR ---
Patient called out stating she had wet the bed, and bladder cramps/spasms have gone away.
--- NOTE | 2019-08-28 03:26 | NUR ---
Patient has been resting in bed this shift. Hemovac to Left BKA putting out scant amount of bloody drainage. Patient has been utilizing morphine for pain relief. Patient states he is in a manic state at this time. Patient has been able to tolerate eating and drinking this shift. Antibiotics given as ordered. Blood pressure as been a little low at low 100s upper 90s over 50s and 60s. Fluids continue to run at this time.
[2019-08-28 03:40] VITALS: BP 94/48; PULSE 62; TEMP 97.4
[2019-08-28 06:17] LABS: BASO % 0.4 % (0.0-2.0); EOS # 0.4 (0.0-0.7); EOS % 6.2 % (0-4.0); GRAN % 57.9 % (42.2-75.2); LYMPH # 1.8 (1.2-3.4); LYMPH % 25.6 % (20.0-51.0); MEAN CELL VOLUME 96 fl (80.0-100.0); MEAN CORPUSCULAR HGB CONC 32 g/dl (33.0-37.0); MEAN PLATELET VOLUME 9.4 fl (7.4-10.4); MONO # 0.7 (0.1-0.6); MONO % 9.6 % (1.7-9.3); PLATELET COUNT 363 K/mm3 (130-400); RED BLOOD COUNT 2.61 M/mm3 (4.20-5.60)
[2019-08-28 06:22] LABS: HEMATOCRIT 25.1 % (42.0-52.0); HEMOGLOBIN 7.9 g/dl (13.5-18.0); MEAN CORPUSCULAR HEMOGLOBIN 30 pg (27.0-31.0)
[2019-08-28 06:28] LABS: CALCIUM 9.1 mg/dL (8.4-10.2); CREATININE, serum 0.92 (0.66-1.25); POTASSIUM 3.7 mmol/L (3.4-5.0)
[2019-08-28 08:22] VITALS: BP 101/56; PULSE 68; TEMP 98.2
--- NOTE | 2019-08-28 09:05 | NUR ---
Patient resting in bed at this time. Patient is alert and oriented, answers questions appropriately. Patient is in good spirits this morning and reports his pain is well controlled. Hemovac drain to left leg amputation site in place, emptied approximately 25 ml of dark red drainage from drain. Dressing to residual limb is CDI, limb is elevated on pillow. Patient is voiding pale yellow urine in urinal. Patient denies further needs at this time, call light within reach.
[2019-08-28 11:35] VITALS: BP 92/52; PULSE 67; TEMP 98.3
--- NOTE | 2019-08-28 14:19 | NUR ---
AYESHA met with the patient to discuss discharge plan. The patient lives in [place] with his fiancee, Darlene (ph#[phone]). He was recently discharged from inpatient rehab and returned back home with Darlene and home health services for long-term/PT/OT through [facility]. He states that everything was going well, but judged a transfer from their vehicle wrong and had a fall, landing on his BKA. He reports independence with ADLs and has a cane, two walkers, a knee scooter, and wheelchair. The patient just got switched to the PCP Dr. Claudia Kasper. His first appointment with her was suppose to be today. He receives his medications at [facility]. The patient's advanced directives are in EMR. His DPOA-HC is his brothers: Pio (ph#[phone]) and Jose. The patient reports that him and Darlene will be getting remarried this Monday. He states that they plan on going to a ob/gyn doctor to switch his DPOA-HC to [place]. The patient plans to return back home with his fiancee and home health services from [facility]. AYESHA contacted and faxed updates to Seble at [facility]. Seble reports that they are able to resume services for the patient. SW to continue to follow.
[2019-08-28 16:00] VITALS: BP 117/62; PULSE 65; TEMP 98.6
--- NOTE | 2019-08-28 17:58 | NUR ---
Patient resting in bed at this time. Patient remains alert and oriented and in a plesant mood. Patient has been up with PT and ambulated to bathroom with x1 assist. Hemovac to left leg was removed by ortho. IVF bolus administered per order, IVF continue. Patient denies needs at this time, call light within reach.
[2019-08-28 19:33] VITALS: BP 114/68; PULSE 70; TEMP 98.1
[2019-08-28 23:41] VITALS: BP 115/60; PULSE 70; TEMP 98.6
[2019-08-29 03:29] VITALS: BP 118/63; PULSE 64; TEMP 98.4
[2019-08-29 06:43] LABS: BASO % 0.7 % (0.0-2.0); EOS # 0.5 (0.0-0.7); EOS % 7.3 % (0-4.0); GRAN # 3.5 (1.4-6.5); LYMPH # 1.5 (1.2-3.4); LYMPH % 25.1 % (20.0-51.0); MEAN CELL VOLUME 96 fl (80.0-100.0); MEAN CORPUSCULAR HGB CONC 31 g/dl (33.0-37.0); MEAN PLATELET VOLUME 9.2 fl (7.4-10.4); MONO # 0.6 (0.1-0.6); MONO % 9.6 % (1.7-9.3); PLATELET COUNT 348 K/mm3 (130-400); RED BLOOD COUNT 2.64 M/mm3 (4.20-5.60); REDCELL DISTRIBUTION WIDTH-CV 14.1 % (11.5-14.5)
[2019-08-29 06:48] LABS: HEMATOCRIT 25.4 % (42.0-52.0); HEMOGLOBIN 7.8 g/dl (13.5-18.0); MEAN CORPUSCULAR HEMOGLOBIN 30 pg (27.0-31.0)
[2019-08-29 06:53] LABS: CALCIUM 8.8 mg/dL (8.4-10.2); CREATININE, serum 0.85 (0.66-1.25); POTASSIUM 4.1 mmol/L (3.4-5.0)
[2019-08-29 07:53] VITALS: BP 116/54; PULSE 76; TEMP 98
--- NOTE | 2019-08-29 08:00 | NUR ---
PATIENT RESTING IN BED THIS MORNING. PATIENT IS A&OX4. VSS. BOWEL SOUNDS ACTIVE ALL FOUR QUADRANTS. PATIENT TOLERATING DIET WITHOUT ANY COMPLAINTS OF N/V. POSITIVE PEDAL PULSE TO RLE. POSITIVE POPLITEAL PULSE TO LEFT BKA. LEFT BKA DRESSED WITH AN EBONY WRAP AND IS CD&I. SCD TO RLE. LLE ELEVATED ON PILLOW. CALL LIGHT WITHIN REACH. NO NEEDS AT THIS TIME.
[2019-08-29 11:23] VITALS: BP 118/65; PULSE 72; TEMP 98.8
[2019-08-29] MEDS ORDERED: DOXYCYCLINE 10100 MG PO (12:15)
--- NOTE | 2019-08-29 12:40 | NUR ---
The patient is to tentatively discharge today, 08/28 with [facility]. SW faxed discharge orders. There are no additional needs at this time.
--- NOTE | 2019-08-29 15:05 | NUR ---
DISCHARGE INSTRUCTIONS REVIEWED WITH PATIENT. QUESTIONS SOUGHT. PATIENT DENIES QUESTIONS AT THIS TIME.
--- NOTE | 2019-08-29 15:22 | NUR ---
PATIENT PERSONAL BELONGINGS GATHERED. PATIENT TAKEN TO PERSONAL VEHICLE VIA WHEELCHAIR BY SURGICAL STAFF. PATIENT DISCHARGED.
== END 2019-08-29 15:22 | disposition home health service (06) | DRG 501 ==
LOC: COL.ER 08:02 → JCC 08:54 → SURG 10:45
PROVIDERS: Orthopaedic Surgery; Physician Assistant; ADMIT Student in an Organized Health Care Education/Training Program
PROC: 0Y9J00Z Drainage of Left Lower Leg with Drainage Device, Open Approach (ICD-10-PCS; principal; 2019-08-27 16:15)
PROC: 0QDH0ZZ Extraction of Left Tibia, Open Approach (ICD-10-PCS; 2019-08-27 16:15)
DX: T87.81 Dehiscence of amputation stump (principal); I50.30 Unspecified diastolic (congestive) heart failure; G20 Parkinson's disease; F31.9 Bipolar disorder, unspecified; E03.9 Hypothyroidism, unspecified; D50.0 Iron deficiency anemia secondary to blood loss (chronic); G47.33 Obstructive sleep apnea (adult) (pediatric); I11.0 Hypertensive heart disease with heart failure; E78.5 Hyperlipidemia, unspecified; L89.629 Pressure ulcer of left heel, unspecified stage; K21.9 Gastro-esophageal reflux disease without esophagitis; E66.01 Morbid (severe) obesity due to excess calories; Z86.718 Personal history of other venous thrombosis and embolism; Z86.711 Personal history of pulmonary embolism
CPT/HCPCS: 99223-AI; 99231-AI; 99239; J0690; J1650; J2250; J2270; J2405; J2704; J7030; J7040

== ENCOUNTER → 2019-09-12 | Outpatient (CLI) | payer MEDICARE, MEDICAID | LOC: BHSO 15:17 | DX: F31.77 Bipolar disorder, in partial remission, most recent episode mixed (principal) | CPT/HCPCS: G0463 ==

== ENCOUNTER → 2019-10-18 | Outpatient (CLI) | payer MEDICARE, MEDICAID | LOC: BHSO 13:51 | DX: F31.77 Bipolar disorder, in partial remission, most recent episode mixed (principal) | CPT/HCPCS: G0463 ==

== ENCOUNTER 2019-11-16 09:17 | Emergency (ER) | payer MEDICARE, MEDICAID ==
[~2019-11-16] VITALS: Ht 185.4 cm; Wt 85.0 kg
[~2019-11-16 09:17] MED LIST changes: +LEVAQUIN 5500 MG/TA1 PO; +NATURE'S BL400 IU/ML; +SMZ/TMPDS; +VITAMIN D3; +VITAMINC1000TA
[2019-11-16 09:18] VITALS: TEMP 97.9
[2019-11-16 09:37] LABS: BASO # 0.1 (0.0-0.2); BASO % 0.8 % (0.0-2.0); EOS # 0.2 (0.0-0.7); EOS % 2.2 % (0-4.0); GRAN # 4.5 (1.4-6.5); GRAN % 62.4 % (42.2-75.2); HEMATOCRIT 37.3 % (42.0-52.0); HEMOGLOBIN 11.9 g/dl (13.5-18.0); LYMPH # 1.9 (1.2-3.4); LYMPH % 26.6 % (20.0-51.0); MEAN CELL VOLUME 89 fl (80.0-100.0); MEAN CORPUSCULAR HEMOGLOBIN 28 pg (27.0-31.0); MEAN CORPUSCULAR HGB CONC 32 g/dl (33.0-37.0); MEAN PLATELET VOLUME 9.9 fl (7.4-10.4); MONO # 0.6 (0.1-0.6); MONO % 7.7 % (1.7-9.3); PLATELET COUNT 288 K/mm3 (130-400); REDCELL DISTRIBUTION WIDTH-CV 13.2 % (11.5-14.5)
[2019-11-16 09:48] LABS: INR 1.4 (0.8-3.0); PROTHROMBIN TIME 15.3 SECONDS (9.7-12.8)
[2019-11-16 09:50] LABS: ALBUMIN 4.4 gm/dL (3.5-5.0); ALKALINE PHOSPHATASE 99 U/L (50-136); ANION GAP 10 mmol/L (7-16); AST,SGOT 28 U/L (15-37); BILIRUBIN,TOTAL 0.5 mg/dL (0.0-1.0); BLOOD UREA NITROGEN 12 mg/dL (9-20); CALCIUM 10.2 mg/dL (8.4-10.2); CARBON DIOXIDE 25 mmol/L (22-30); CHLORIDE 103 mmol/L (98-107); CREATININE, serum 0.93 (0.66-1.25); GLUCOSE 88 mg/dL (74-106); LIPASE 86 U/L (23-300); POTASSIUM 4.4 mmol/L (3.4-5.0); SODIUM 138 mmol/L (137-145); TOTAL PROTEIN 7.5 gm/dL (6.4-8.2)
[2019-11-16 09:56] LABS: ALANINE AMINOTRANSFERASE < 4 U/L (4-49)
[2019-11-16 10:08] LABS: TROPONIN-I < 0.012 ng/mL (0.000-0.035)
[2019-11-16 13:06] VITALS: BP 143/102; PULSE 74
== END 2019-11-16 12:53 | disposition home or self-care (01) ==
LOC: COL.ER 09:17
PROVIDERS: Emergency Medicine
DX: R53.1 Weakness (principal); R42 Dizziness and giddiness; R06.02 Shortness of breath; Z79.01 Long term (current) use of anticoagulants; I10 Essential (primary) hypertension; E78.00 Pure hypercholesterolemia, unspecified; I50.9 Heart failure, unspecified; Z86.718 Personal history of other venous thrombosis and embolism; Z86.711 Personal history of pulmonary embolism; Z95.828 Presence of other vascular implants and grafts
CPT/HCPCS: J7040; Q9967

== ENCOUNTER → 2019-12-17 | Outpatient (CLI) | payer MEDICARE, MEDICAID | LOC: BHSO 13:52 | DX: F31.76 Bipolar disorder, in full remission, most recent episode depressed (principal) | CPT/HCPCS: G0463 ==

== ENCOUNTER → 2020-01-10 | Outpatient (CLI) | payer MEDICARE, MEDICAID | LOC: ZCOL.LAB 23:15 | DX: T87.9 Unspecified complications of amputation stump (principal); T14.8XXA Other injury of unspecified body region, initial encounter ==

== ENCOUNTER → 2020-03-17 | Outpatient (CLI) | payer MEDICARE, MEDICAID | LOC: COL.RAD 13:13 | DX: I82.412 Acute embolism and thrombosis of left femoral vein (principal); I82.432 Acute embolism and thrombosis of left popliteal vein; R19.00 Intra-abdominal and pelvic swelling, mass and lump, unspecified site | CPT/HCPCS: Q9967 ==

== ENCOUNTER → 2020-07-10 | Outpatient (CLI) | payer MEDICARE, MEDICAID | LOC: COL.RAD 13:33 | DX: L97.909 Non-pressure chronic ulcer of unspecified part of unspecified lower leg with unspecified severity (principal) ==

== ENCOUNTER → 2020-11-12 | Outpatient (CLI) | payer MEDICARE, MEDICAID | LOC: COL.RAD 10-26 09:45 | DX: T87.44 Infection of amputation stump, left lower extremity (principal); Z89.512 Acquired absence of left leg below knee | CPT/HCPCS: A9585 ==

== ENCOUNTER → 2021-04-16 | Outpatient (CLI) | payer MEDICARE, MEDICAID | LOC: COL.RAD 14:32 | DX: M86.9 Osteomyelitis, unspecified (principal); Z89.512 Acquired absence of left leg below knee ==

== ENCOUNTER → 2021-04-19 | Outpatient (CLI) | payer MEDICARE, MEDICAID | LOC: ZCOL.LAB 16:46 | DX: L97.909 Non-pressure chronic ulcer of unspecified part of unspecified lower leg with unspecified severity (principal); B99.9 Unspecified infectious disease; T81.89XS Other complications of procedures, not elsewhere classified, sequela; M86.9 Osteomyelitis, unspecified ==

== ENCOUNTER → 2021-05-10 | Outpatient (CLI) | payer MEDICARE, MEDICAID | LOC: COL.RAD 08:36 | DX: L97.909 Non-pressure chronic ulcer of unspecified part of unspecified lower leg with unspecified severity (principal); M86.8X6 Other osteomyelitis, lower leg; Z89.512 Acquired absence of left leg below knee | CPT/HCPCS: A9575 ==

== ENCOUNTER → 2021-05-14 | Outpatient (CLI) | payer MEDICARE, MEDICAID | LOC: ZCOL.LAB 16:15 | DX: L97.909 Non-pressure chronic ulcer of unspecified part of unspecified lower leg with unspecified severity (principal); M86.9 Osteomyelitis, unspecified; B99.9 Unspecified infectious disease; T81.89XS Other complications of procedures, not elsewhere classified, sequela ==

== ENCOUNTER 2021-08-10 11:59 | Emergency (ER) | payer MEDICARE, MEDICAID ==
[~2021-08-10] VITALS: Ht 185.4 cm; Wt 90.9 kg
[2021-08-10 12:34] LABS: BASO # 0.1 K/mm3 (0.0-0.2); BASO % 0.9 % (0.0-2.0); EOS # 0.3 K/mm3 (0.0-0.7); GRAN # 6.2 K/mm3 (1.4-6.5); GRAN % 69.4 % (42.2-75.2); HEMATOCRIT 37.7 % (42.0-52.0); HEMOGLOBIN 11.9 g/dl (13.5-18.0); LYMPH # 1.5 K/mm3 (1.2-3.4); LYMPH % 16.9 % (20.0-51.0); MEAN CELL VOLUME 88 fl (80.0-100.0); MEAN CORPUSCULAR HEMOGLOBIN 28 pg (27-31); MEAN CORPUSCULAR HGB CONC 32 g/dl (33.0-37.0); MEAN PLATELET VOLUME 10.4 fl (7.4-10.4); MONO # 0.9 K/mm3 (0.1-0.6); MONO % 9.6 % (1.7-9.3); PLATELET COUNT 258 K/mm3 (130-400); RED BLOOD COUNT 4.27 M/mm3 (4.20-5.60); REDCELL DISTRIBUTION WIDTH-CV 14.2 % (11.5-14.5)
[2021-08-10 12:41] LABS: COLLECTION METHOD CLEAN CATCH
[2021-08-10 12:56] LABS: PH 6 (5-8); SQUAMOUS EPITHELIAL 0-2 /hpf (0-10); URINE APPEARANCE Clear (CLEAR/HAZY); URINE BACTERIA None Seen /hpf (NONE SEEN); URINE BILIRUBIN Negative (NEGATIVE); URINE BLOOD Negative (NEGATIVE); URINE COLOR Yellow (YELLOW); URINE GLUCOSE Negative (NEGATIVE); URINE KETONE Trace (NEGATIVE); URINE LEUKOCYTE ESTERASE Negative (NEGATIVE); URINE NITRATE Negative (NEGATIVE); URINE PROTEIN(semi-quant) Negative (NEGATIVE); URINE RBC 0-2 /hpf (0-2); URINE UROBILINOGEN Negative (NEGATIVE)
[2021-08-10 12:56] LABS: ALBUMIN 4.1 gm/dL (3.4-4.8); ALKALINE PHOSPHATASE 139 U/L (40-150); ANION GAP 12 mmol/L (7-16); AST,SGOT 25 U/L (5-34); BILIRUBIN,TOTAL 0.8 mg/dL (0.2-1.2); BLOOD UREA NITROGEN 17 mg/dL (8-26); CALCIUM 9.6 mg/dL (8.4-10.2); CARBON DIOXIDE 23 mmol/L (23-31); CHLORIDE 104 mmol/L (98-107); CREATININE, serum 1.34 mg/dL (0.72-1.25); GLUCOSE 89 mg/dL (70-99); POTASSIUM 3.4 mmol/L (3.5-4.5); SODIUM 139 mmol/L (136-145); TOTAL PROTEIN 7.3 gm/dL (6.2-8.1)
[2021-08-10 12:57] LABS: ALANINE AMINOTRANSFERASE < 6 U/L (0-55)
--- NOTE | 2021-08-10 15:22 | NUR ---
SW responded to consult. SW met with patient who states that he suffers from Bipolar and Parkinson's. Patient states he has out patient memory therapy at [facility] every Monday and has been going for 3 months. Patient endorses that he was unable to find it this morning. Patient currently lives at home alone here in [place]. He utilizes a walker, cane and wheelchair to assist with ambulation. Patient was able to tell me that he had a BKA in August of 2019, which looking back through his chart, is accurate. After his BKS he was discharged to the [facility] and then home with services through [facility], which has since ended. Patient is able to perform his ADL's at home but states when "im manic" it takes longer to get things done. Patient states that recently it has been taking him 3.5 hs to take showers and get dressed and that he is not sleeping. Patient utilizes [facility] in [place] and states that they package his medications up for him and deliver them to his home. Patient reports that he has his bank account set up to pay his bills electronically. Patient see's Dr. Kasper for PCP, Dr. Magaña for neurology and Dr. Vera for psychiatry. SW contacted PCP office and spoke with Dr. Cook nurse. RN states that the patient at baseline does not express confusion but usually communicates through their patient portal. Rn states that the speech therapist at [facility] called her this morning with concerns over the patient's confusion and "word salad", increased paranoia, seeing doubles of cars while driving and not being oriented to the date and year. This warranted the phone call to EMS to bring him to the ER and have him evaluated. AYESHA contacted Dr. Vera's office who states they saw the patient yesterday and there was nothing notated in yesterday's visit about the patient experiencing confusion but he was prescribed Lunesta and the MD wanted to check his lithium levels. Phone call made to the patient's brother Pio. Pio states that he has noticed the increaded in confusion with the patient and that " he has been manic". Pio states that their mother had Parkinson's and the patient will say things like " i wish they would implant something in my head like they did to mom". Pio is trying to get the patient to sell his house and move to the [place] area where he and another brother live at, so the patient would be closer to family support. Phone call received from tierney broth named Richie who lives in [place]. Richie states that he tries to talk with the patient around 3 times a week but the patient has been shutting him out. Educated Richie that we are looking at [facility] which he echoed Pio's states that he would like a facility closer to the [facility] so the patient would be closer to his other two brother. Informed him that at this time multiple referrals have been sent out and at this time it would be who has a bed. Referrals faxed to all [facility] units. Desmond with [facility] called stating that that they would just need a covid swab and they can accept. Informed Desmond that we got that this afternoon and information faxed. Desmond states that the patient can arrive as early as 8:00 am but has to be there before 1400, but due to staffing they cannot accept tonight. Patients RN and housemaid notified. Informed house that the patient can arrive at their facility at 8:00am tomorrow morning. House to set up secure transport. Famly notified.
[2021-08-10 15:24] VITALS: TEMP 97
[2021-08-10] MEDS ORDERED: MIRTAZAPINE7.5 MG PO (16:45)
[2021-08-10] MEDS ORDERED: LAMICTAL150 MG PO (16:46)
[2021-08-10] MEDS ORDERED: NORVASC 10MG10 MG PO (16:48)
[2021-08-10] MEDS ORDERED: HCTZ 25MG TAB25 MG PO (16:49)
[2021-08-10] MEDS ORDERED: SYNTHROID0.2 MG/TAB PO (16:50)
[2021-08-10] MEDS ORDERED: SYNTHROID0.05 MG/TA PO (16:53)
[2021-08-10] MEDS ORDERED: PRILOSEC 20MG20 MG PO (17:03)
[2021-08-10] MEDS ORDERED: COZAAR100 MG PO (17:04)
[2021-08-10] MEDS ORDERED: ESKALITH C450 MG/TAB (17:06)
[2021-08-10] MEDS ORDERED: SINEMET 25/101 UDTAB PO (17:08)
[2021-08-10] MEDS ORDERED: AZILECT1 MG PO (17:08)
[2021-08-10] MEDS ORDERED: TOPROL XL 25MG25 MG PO (17:09)
[2021-08-10] MEDS ORDERED: LIPITOR 40MG TA40 MG PO (17:12)
[2021-08-10 21:00] VITALS: BP 134/72; PULSE 74
--- NOTE | 2021-08-11 07:48 | NUR ---
sheet metal worker confirmed patient has a durable power of staff attorney for health care. Worker contacted Pam at [facility] and confirmed they will accept patient this date. Worker advised that secure transport would be leaving facility at 7:45/8:00am. Worker faxed home medication list and medication administration list from the hospital to [facility], per Pam's request. Nursing contacted brother, Jose, to get consent for transport. Facility name and phone number given to Jose. Jose states he will contact his brother to advise of the above information. Worker and nurses collaborated with Dr Rojo who states that currently patient does not have decision making ability.
== END 2021-08-11 09:10 ==
LOC: COL.ER 11:59
PROVIDERS: Personal Emergency Response Attendant
DX: I62.03 Nontraumatic chronic subdural hemorrhage (principal); F31.9 Bipolar disorder, unspecified; F03.90 Unspecified dementia, unspecified severity, without behavioral disturbance, psychotic disturbance, mood disturbance, and anxiety; Z20.822 Contact with and (suspected) exposure to COVID-19

== ENCOUNTER → 2021-09-30 | Outpatient (CLI) | payer MEDICARE, MEDICAID ==
[~2021-09-30] MED LIST changes: +AZILECT1 MG PO; +COZAAR100 MG PO; +ESKALITH C450 MG/TAB; +HCTZ 25MG TAB25 MG PO; +LAMICTAL150 MG PO; +LIPITOR 40MG TA40 MG PO; +MIRTAZAPINE7.5 MG PO; +NORVASC 10MG10 MG PO
== END ==
LOC: COL.VAS 08:00
DX: M79.89 Other specified soft tissue disorders (principal); M79.604 Pain in right leg; Z86.718 Personal history of other venous thrombosis and embolism